=== PATIENT | male | born 1935 | race Caucasian/White ===

== ENCOUNTER 2017-01-18 14:12 | Emergency (ER) | payer MEDICARE, OTHER ==
--- NOTE | 2017-01-18 15:03 | UC ---
Respiratory Complaint HPI - HPI Summary HPI Summary: The patient comes in today for: 1. Shortness of breath: Onset: This morning. Palliative/provocative: Inhaler makes this better. Quality: dyspnea. Region: Lungs. Severity: He states that his breathing is now down 50% of normal. Time: Constant. Associated symptoms: Previous disease: He has a history of COPD for which he has been treated for 6 months. But, he states starting this morning, his breathing got worse. He states that compared to normal breathing, his breathing normally is down to 60%. However, this morning, it is worse at 50%. Previous treatment: He has seen Dr. Prasad 2 weeks ago. He was treated for COPD. He is also being assessed for sleep apnea. Chest pain: None. Previous heart disease: He has a history of afib. HE states that has had this for three years. He sees a printing press operator for this--last seen about 2 months ago. Fevers: No temperature taken at home. Cough: Productive of yellow material. - History of Current Complaint Chief Complaint: UCRespiratory Stated Complaint: BREATHING ISSUE/CONGEST-COPD Time Seen by Provider: 01/18/17 14:48 Hx Obtained From: Patient - Allergies/Home Medications Allergies/Adverse Reactions: Allergies Allergy/AdvReac Type Severity Reaction Status Date / Time Iodine Allergy Severe Hives Verified 01/20/16 16:13 Amoxicillin Allergy Intermediate Hives Verified 01/20/16 16:13 Banana Allergy AVOIDS Verified 01/20/16 16:13 BECAUSE OF MEDICATION Home Medications: Home Medications Budesonide/Formote 80/4.5(NF) [Symbicort 80/4.5 (NF)] 1 puff INH BID 01/18/17 [ History Confirmed 01/18/17] PMH/Surg Hx/FS Hx/Imm Hx Previously Healthy: No - BPH, gout. Endocrine History Of: Reports: Diabetes - type 2 dm Denies: Thyroid Disease, Hyperthyroidism, Hypothyroidism, Dyslipidemia Cardiovascular History Of: Reports: Cardiac Disorders - A FIB, Hypertension - CONTROL WITH MEDS, Atrial Fibrillation Denies: Pacemaker/ICD, Myocardial Infarction, Congestive Heart Failure, Deep Vein Thrombosis, Bleeding Disorders Respiratory History Of: Reports: COPD - 70%, Asthma, Bronchitis - HX OF 2 TIMES PER YEAR Denies: Pneumonia, Pulmonary Embolism GI/ History Of: Reports: Kidney Stones Denies: Gastroesophageal Reflux, Ulcer, Gastrointestinal Bleed, Gall Bladder Disease, Diverticulitis, Renal Disease, Urosepsis Neurological History Of: Reports: CVA - Around 1999 Denies: Dementia, Seizures, Migraine Psychological History Of: Denies: Anxiety, Depression, Bipolar Disorder, Schizophrenia, Post Traumatic Stress Disorder Cancer History Of: Denies: Lung Cancer, Colorectal Cancer, Breast Cancer, Prostate Cancer Other History Of: Anticoagulant Therapy - On warfarin Negative For: HIV, Hepatitis B, Hepatitis C - Surgical History Surgical History: Yes Surgery Procedure, Year, and Place: bilat cataract. [facility] marrow biopsy at the [facility] in [place] - Family History Known Family History: Negative: Cardiac Disease, Hypertension, Diabetes - Social History Occupation: Retired Lives: With Family Alcohol Use: None Substance Use Type: None Smoking Status (MU): Former Smoker Type: Cigarettes Amount Used/How Often: 1 PPD OFF AND ON 15-20 YEARS Length of Time of Smoking/Using Tobacco: OFF AND ON FOR 15-20 YEARS Have You Smoked in the Last Year: No When Did the Patient Quit Smoking/Using Tobacco: 2003 - Immunization History Most Recent Influenza Vaccination: 2015 Most Recent Tetanus Shot: "a while" Most Recent Pneumonia Vaccination: 4-5 yrs ago Review of Systems Constitutional: Fever Skin: Negative Eyes: Negative ENT: Negative Respiratory: Shortness Of Breath, Cough Cardiovascular: Negative Gastrointestinal: Negative All Other Systems Reviewed And Are Negative: Yes Physical Exam Triage Information Reviewed: Yes Appearance: Well-Appearing, No Pain Distress, Well-Nourished Vital Signs: Initial Vital Signs Temp 99.8 F 01/18/17 14:14 Pulse 115 01/18/17 14:14 Resp 22 01/18/17 14:14 Pulse Ox 96 01/18/17 14:14 Vital Signs Reviewed: Yes Eyes: Positive: Conjunctiva Clear. Negative: Discharge ENT: Positive: Hearing grossly normal. Negative: Pharyngeal erythema, Nasal congestion, Nasal drainage, TM bulging, TM dull, TM red, Tonsillar swelling, Tonsillar exudate Dental: Negative: Gross Decay/Caries @, Dental Fracture @ Neck: Positive: Supple, Nontender, No Lymphadenopathy. Negative: Nuchal Rigidity Respiratory: Positive: Lungs clear, No respiratory distress, No accessory muscle use, Other: - He has a very shortened inspiration/expiration cycle.. Negative: Rhonchi, Wheezing Cardiovascular: Positive: RRR, No Murmur Abdomen Description: Positive: Nontender, No Organomegaly, Soft. Negative: Distended, Guarding Musculoskeletal: Positive: Strength Intact, ROM Intact, No Edema Neurological: Positive: Alert, Muscle Tone Normal Psychological: Negative: Age Appropriate Behavior, Consolable Skin: Negative: rashes, breakdown UC Diagnostic Evaluation - Laboratory O2 Sat by Pulse Oximetry: 96 Diagnostic Studies Comment: EKG: Rate: 96-115. Rhythym: atrial fibrillation. Ectopy: No ventricular arrhythmias. Acute changes: None. CXR: lingular pneumonia. - Radiology Xray Interpretation: Positive (See Comments) Radiology Interpretation Completed By: Radiologist - Lingular pneumonia. Respiratory Course/Dx - Course Course Of Treatment: Patient told of his lingular pneumonia and my recommendation to go to the Er. He agreed to go--by private car. - Differential Dx/Diagnosis Provider Diagnoses: Lingular pneumonia. atrial fibrillation with episodes of rapid ventricular response. COPD. DM. HTN - Physician Notification/Consults Discussed Patient Care With: Dr. Pierson Time Discussed With Above Provider: 15:54 Discharge - Discharge Plan Condition: Stable Disposition: HOME Additional Instructions: Please go directly to the ER at [facility].
--- NOTE | 2017-01-18 15:35 | RAD ---
INDICATION: Fever. Pneumonia. COMPARISON: Chest x-ray October 26, 2016 TECHNIQUE: PA and lateral dual-energy views were obtained. FINDINGS: Bones/Soft Tissues: There are no acute bony findings. Cardiomediastinal: The heart is top normal in size with mild uncoiling of the thoracic aorta. Lungs: There is a lingular infiltrate and there may also be a small right middle lobe infiltrate. Pleura: There are no pleural effusions. Other: None IMPRESSION: LINGULAR PNEUMONIA.
[2017-01-18 15:50] VITALS: BP 161/85
== END 2017-01-18 15:58 | disposition home or self-care (01) ==
LOC: EDBD → UCEAST 14:12
DX: J18.9 Pneumonia, unspecified organism (principal); I48.91 Unspecified atrial fibrillation; J44.9 Chronic obstructive pulmonary disease, unspecified; E11.9 Type 2 diabetes mellitus without complications; I10 Essential (primary) hypertension; Z87.891 Personal history of nicotine dependence
CPT/HCPCS: 71020; 93005; 99212; G0463

== ENCOUNTER 2017-01-18 16:16 | Inpatient (IN) | payer MEDICARE, OTHER ==
[2017-01-18] MEDS ORDERED: Levofloxacin 750 MG IVPREMIX(* 750 MG/150 ML BAG IVPB ONE (16:43)
[2017-01-18] MEDS: NS 0.9% 1000 ML* 2,000 ML IV ONE (17:14)
[2017-01-18 17:20] LABS: Hematocrit 45 % (42-52); Hemoglobin 14.6 g/dl (14.0-18.0); Mean Corpuscular HGB Conc 33 g/dl (31-36); Mean Corpuscular Hemoglobin 27 pg (27-31); Mean Corpuscular Volume 83 fL (80-94); Mean Platelet Volume 9 um3 (7.4-10.4); Red Blood Count 5.43 10^6/ul (4.0-5.4); Red Cell Distribution Width 16 % (10.5-15)
[2017-01-18 17:27] LABS: Add Diff/Slide Review? Slide Review Added; Comments Flag Yes
[2017-01-18 17:36] LABS: BUN/Creatinine Ratio 12.5 (8-20); C Reactive Protein 7.42 mg/L (< 5.00); Calcium 9.5 mg/dL (8.6-10.3); EGFR African American 107.4 (>60); EGFR Non-African American 83.5 (>60); Globulin 2.8 g/dL (2-4); Potassium 4.1 mmol/L (3.5-5.0); Total Bilirubin 0.6 mg/dL (0.2-1.0); Total Protein 6.8 g/dL (6.4-8.9)
[2017-01-18 17:43] LABS: Troponin I 0.05 ng/mL (<0.04)
[2017-01-18] MEDS ORDERED: GuaiFENesin DM* 5 ML UDC PO PRN (18:28)
[2017-01-18] MEDS ORDERED: Dextrose 50% Syringe 50 ML* 25 GM/50 ML SYRINGE IV PUSH PRN (18:28)
[2017-01-18] MEDS ORDERED: Albuterol HFA INHALER* 8 gm MDI INH PRN (18:40)
--- NOTE | 2017-01-18 19:32 | RAD ---
INDICATION: Lingular pneumonia on chest x-ray COMPARISON: Chest x-ray same date TECHNIQUE: Axial source images were obtained from the thoracic inlet to the hemidiaphragms. Coronal and sagittal reconstructed images were acquired. The right thyroid lobe is an isthmus enlarged and heterogeneous. Suggest nonemergent follow-up thyroid sonography. Chest wall: There are no acute abnormalities of the bony thorax or chest wall. There is no supraclavicular, infraclavicular, or axillary lymphadenopathy. Lungs : There is a lingular pneumonia with consolidation consistent with a chest x-ray findings. The remaining lung ulrich are clear. Cardiomediastinal structures: The heart is normal in size. There is no pericardial effusion. There is no evidence of aortic aneurysm or dissection. The pulmonary vessels appear normal. There is no mediastinal or hilar adenopathy based on size criteria. The esophagus appears normal. Pleura : There are no pleural-based masses or effusions. Other: Incompletely imaged upper pole right renal cyst measuring 4.9 cm. IMPRESSION: LINGULAR PNEUMONIA. SUGGEST FOLLOW-UP.
[2017-01-18] MEDS: cefTRIAXone VIAL(*) 1,000 MG in NS 0.9% 50 ML* 50 ML IVPB SCH (20:11)
[2017-01-18] MEDS ORDERED: Warfarin TAB(*) 2.5 MG PO ONE (20:33)
[2017-01-18] MEDS: Benzonatate CAP* 100 MG PO SCH (20:52)
[2017-01-18] MEDS: Atenolol TAB* 50 MG PO SCH (20:52)
[2017-01-18] MEDS: Azithromycin TAB* 250 MG PO SCH (20:52)
--- NOTE | 2017-01-19 02:28 | HP ---
HOSPITAL MEDICINE HISTORY AND PHYSICAL: DATE OF ADMISSION: 01/18/17 PRIMARY CARE PHYSICIAN: Dr. Brody, [place] ATTENDING PHYSICIAN: Lakhwinder Yusuf MD* (dictation provided by Scar Wong NP ) CHIEF COMPLAINT: Shortness of breath, cough, and fever. HISTORY OF PRESENT ILLNESS: Mr. Islas is a 81-year-old male with a past medical history of COPD, atrial fibrillation, diabetes, and hypertension as well as admission to the hospital in November 2016 for pneumonia, who presents today to the hospital with concern for cough, shortness of breath, and fever. Mr. Islas states that his illness began about 2 months ago. He has felt better at times, but has never been back to baseline. He was admitted to the hospital here in October 2016 and in November 2016 for pneumonia. During both of these admissions, he was treated with Levaquin. The patient states that he has followed up with Dr. Prasad, information assistant, through [facility] [place]. He last saw him a few weeks ago with planned followup next week. The patient is continued on his home routine inhalers. He states that this morning, he actually woke up feeling relatively well, but by 9 a.m., he developed shortness of breath and by 10 o'clock, he was having fevers, chills, and a headache. He decided to be seen in the [facility] at which point where he had a chest x- ray, which showed concern for right-sided pneumonia. He was therefore sent to the emergency room for evaluation. In the emergency room, Mr. Islas has a leukocytosis with white blood cell count of 20, but I do note that his white blood cell count has been elevated since as far back as 2013 on all our checks here at the hospital. Otherwise, he has a mild lactic acidosis of 2.5 and a troponin elevated to 0.05. Again, I note this was the same as during the last hospitalization. At this point, he is not requiring oxygen and is breathing easy. PAST MEDICAL HISTORY: 1. COPD. 2. AFib. 3. Diabetes, noninsulin dependent. 4. Hypertension. 5. Recurrent pneumonia, treated as inpatient October 2016 and November 2016. MEDICATIONS: 1. Albuterol 2 puffs inhaled q.4 hours p.r.n. 2. Allopurinol 100 mg p.o. q.a.m. 3. Amlodipine 10 mg p.o. q.a.m. 4. Atenolol 100 mg p.o. b.i.d. 5. Symbicort 80/4.5 mcg 1 puff inhaled b.i.d. 6. Cholecalciferol 400 units p.o. q.a.m. 7. Colchicine 0.6 mg p.o. as needed. 8. Cyanocobalamin 250 mcg p.o. q.a.m. 9. Finasteride 5 mg p.o. daily. 10. Losartan 50 mg p.o. daily. 11. Metformin 1000 mg p.o. b.i.d. 12. Tamsulosin 0.8 mg p.o. q.p.m. 13. Warfarin 2.5 mg p.o. daily. 14. Glipizide 5 mg p.o. b.i.d. ALLERGIES: IODINE, AMOXICILLIN, and BANANA. FAMILY HISTORY: The patient reports his parents from old age. SOCIAL HISTORY: No report of alcohol or drug use. The patient states he quit smoking many many years ago. He states that his is his health care proxy. REVIEW OF SYSTEMS: A 14-point review of systems was completed with Mr. Islas and all those not mentioned above were negative. PHYSICAL EXAMINATION GENERAL: Mr. Islas is sitting up in the bed. He is in no acute distress. He is calm and cooperative to my examination. VITAL SIGNS: Temperature 99.3, heart rate 90, respiratory rate 18, O2 saturation 94% on room air, and blood pressure 137/72. LUNGS: Clear, but there is egophony noted over the right middle lobe. He has good aeration. There is no accessory muscle use. HEART: S1, S2. No murmur, rub, or gallop and regular. ABDOMEN: Soft, nontender with bowel sounds positive x4. EXTREMITIES: No cyanosis or edema. NEUROLOGIC: He is alert. He is oriented x3. He moves all extremities equally. There is no facial asymmetry or focal weakness. Extraocular movements are intact. SKIN: Intact. DIAGNOSTIC STUDIES/LAB DATA: Sodium 134, potassium 4.1, chloride 100, serum bicarbonate 24, BUN 11, creatinine 0.88, glucose 155, and lactic acid 2.5. Troponin 0.05. CRP 7.42. White blood cell count is 20, hemoglobin 14.6, hematocrit 45, and platelet count 559. INR 2.18. Chest x-ray reads "lingular pneumonia." EKG shows atrial fibrillation with no evidence of ischemia. ASSESSMENT: Mr. Islas is a 81-year-old male with a past medical history of chronic obstructive pulmonary disease, diabetes, atrial fibrillation, and hypertension as well as 2 recent hospitalizations for pneumonia in October 2016 and November 2016 who presents again today with shortness of breath, cough, fevers, and chills, found to have worsening pneumonia noted on chest x-ray. Our plan is for inpatient admission as I expect the length of stay to be greater than 2 days for the followin. Pneumonia: I am concerned that the patient has had 2 admissions and now has a worsening right sided infiltrate During the past hospitalizations, he was treated with Levaquin. I plan to switch now to ceftriaxone and azithromycin. I am also planning to order a chest CT for further evaluation of the infiltrate. I suspect the patient may benefit from consultation with Dr. Correa tomorrow and possible bronchoscopy depending on her recommendations. Sputum culture has been ordered. Flu swab has been ordered. The patient will have guaifenesin and Tessalon Perles. He will have oxygen available as needed though he is not needing it now. The patient has no wheezing on examination and I do not see any indication for steroids. 2. Diabetes: Plan to hold metformin and glipizide. The patient will have blood glucoses q.a.c. with lispro sliding scale. 3. Hypertension: Plan to continue home medications of losartan, amlodipine, and atenolol. 4. Atrial fibrillation: INR is therapeutic. Plan to monitor closely while on antibiotics and ill. He will continue his home atenolol. 5. DVT prophylaxis: With therapeutic INR. 6. Code status: Full code. 7. Disposition: To the medical floor. 8. Elevated troponin: The patient's troponin has been elevated at previous checks as well. He has no chest pain and has EKG without evidence of ischemia. I will repeat the troponin for completeness sake, but I have no concern for acute coronary syndrome at this time. TIME SPENT: Approximately 60 minutes was spent in the admission of this patient , more than half of the time was spent with the patient at the bedside reviewing the events leading up to this hospitalization, performing the physical examination, and reviewing my plan of care. SCAR WONG NP CC: Dr. Brody* [id number]/[facility] #: [id number] GENARO
[2017-01-19] MEDS: Acetaminophen TAB* 325 MG PO PRN ×3 (04:19→22:20)
[2017-01-19 05:11] LABS: Hematocrit 43 % (42-52); Mean Corpuscular HGB Conc 33 g/dl (31-36); Mean Corpuscular Hemoglobin 27 pg (27-31); Mean Corpuscular Volume 82 fL (80-94); Mean Platelet Volume 9 um3 (7.4-10.4); Red Blood Count 5.17 10^6/ul (4.0-5.4); Red Cell Distribution Width 16 % (10.5-15); White Blood Count 19.5 10^3/ul (3.5-10.8)
[2017-01-19 05:14] LABS: Comments Flag Yes
[2017-01-19 05:15] LABS: Add Diff/Slide Review? Slide Review Added
[2017-01-19 05:26] LABS: Calcium 9.4 mg/dL (8.6-10.3); EGFR African American 102.1 (>60); EGFR Non-African American 79.4 (>60); Potassium 4.2 mmol/L (3.5-5.0)
[2017-01-19] MEDS: Insulin LISPRO* 1 UNITS UNIT SUBCUT SCH ×3 (08:41→17:25)
[2017-01-19] MEDS: Benzonatate CAP* 100 MG PO SCH ×2 (08:43→21:26)
[2017-01-19] MEDS: Cyanocobalamin TAB* 500 MCG PO SCH (08:43)
[2017-01-19] MEDS: Atenolol TAB* 50 MG PO SCH ×2 (08:44→21:26)
[2017-01-19] MEDS: Finasteride TAB* 5 MG PO SCH (08:44)
[2017-01-19] MEDS: amLODIPine TAB* 5 MG PO SCH (08:44)
[2017-01-19] MEDS: Cholecalciferol TAB* 400 UNIT PO SCH (08:44)
[2017-01-19] MEDS: Losartan TAB* 25 MG PO SCH (08:44)
[2017-01-19] MEDS: Allopurinol TAB* 100 MG PO SCH (08:44)
--- NOTE | 2017-01-19 14:50 | PN ---
Subjective Date of Service: 01/19/17 Interval History: HOSPITALIST PROGRESS NOTE Patient seen and examined at bedside. He feels better today. Has less cough and dyspnea, oxygen requirements are down to 1 liter with exertion. Denies CP or palpitations. Family History: Unchanged from Admission Social History: Unchanged from Admission Past Medical History: Unchanged from Admission Objective Active Medications: Acetaminophen (Tylenol Tab*) 650 mg PO Q6H PRN PRN Reason: PAIN Last Admin: 01/19/17 04:19 Dose: 650 mg Albuterol (Ventolin Hfa Inhaler*) 2 puff INH Q4H PRN PRN Reason: COUGH Allopurin[facility] ([facility]yloprim Tab*) [facility] Last Admin: 01/19/17 08:44 Dose: 100 mg Amlodipine Besylate (Norvasc Tab*) [facility] Last Admin: 01/19/17 08:44 Dose: 10 mg Atenolol (Tenormin Tab*) 100 mg PO BID [facility] Last Admin: 01/19/17 08:44 Dose: 100 mg Azithromycin (Zithromax Tab*) 500 mg PO DAILY@1700 [facility] Last Admin: 01/18/17 20:52 Dose: 500 mg Benzonatate (Tessalon Cap*) 100 mg PO BID [facility] Last Admin: 01/19/17 08:43 Dose: 100 mg Cholecalciferol (Vitamin D Tab*) [facility] Last Admin: 01/19/17 08:44 Dose: 400 unit Cyanocobalamin (Vitamin B12 Tab*) 250 mcg [facility] Last Admin: 01/19/17 08:43 Dose: 250 mcg Dextrose (D50w Syringe 50 Ml*) 12.5 gm IV PUSH .FOR FS < 60 - SS PRN PRN Reason: FS < 60 Finasteride (Proscar Tab*) 5 mg PO DAILY [facility] Last Admin: 01/19/17 08:44 Dose: 5 mg Guaifenesin/Dextromethorphan (Robitussin Dm*) 10 ml PO Q4H PRN PRN Reason: COUGH Ceftriaxone Sodium 1,000 mg/ (Sodium Chloride) 50 mls @ 200 mls/hr IVPB Q24H [facility] Last Admin: 01/18/17 20:11 Dose: 200 mls/hr Insulin Human Lispro (Humalog*) 0 units SUBCUT AC [facility] PRN Reason: Protocol Last Admin: 01/19/17 12:27 Dose: 2 unit Losartan Potassium (Cozaar Tab*) 50 mg PO DAILY [facility] Last Admin: 01/19/17 08:44 Dose: 50 mg Pharmacy Profile Note (Coumadin Daily Reminder*) 1 note FOLLOW UP 1700 [facility] Tamsulosin HCl (Flomax Cap*) 0.8 mg PO QPM [facility] Warfarin Sodium (Coumadin Tab(*)) 2.5 mg PO DAILY@1700 [facility] PRN Reason: Protocol Vital Signs 01/19/17 01/19/17 01/19/17 08:00 10:17 10:55 Temperature 98.5 F Pulse Rate 78 Respiratory 20 Rate Blood Pressure 120/62 (mmHg) O2 Sat by Pulse 98 95 Oximetry Oxygen Devices in Use Now: None Appearance: Pleasant elderly male sitting up in a chair in NAD. Eyes: No Scleral Icterus Ears/Nose/Mouth/Throat: Mucous Membranes Moist Neck: Trachea Midline Respiratory: Symmetrical Chest Expansion and Respiratory Effort, - - BS+ bilaterally with crackles on the right. Cardiovascular: RRR - Normal S1 and S2 Abdominal: NL Sounds; No Tenderness; No Distention Extremities: No Edema Neurological: Alert and Oriented x 3, NL Muscle Strength and Tone Lines/Tubes/Other Access: Clean, Dry and Intact Peripheral IV Nutrition: Taking PO's Result Diagrams: 01/19/17 04:55 01/19/17 04:55 Assess/Plan/Problems-Billing Assessment: Mr. Islas is a 81yo M with PMH of COPD, Afib, type 2 DM, HTN, who presented to ED with c/o SOB, cough, and fever, found to have pneumonia. - Patient Problems (1) Sepsis Comment: - Met sepsis criteria on admission with fever, tachycardia, and leukocytosis. - Source is pneumonia. (2) Pneumonia Comment: - CT chest showed lingular pneumonia. - Cultures show no growth so far and Influenza was negative. - Check Legionella and pneumococcal Ag. - Continue Ceftriaxone and Zithromax. - Will obtain records from Dr. Brody's office (patient had spirometry a couple months ago) and Dr. Prasad (patient had a recent sleep study). - Pulm consult requested. (3) Acute hypoxemic respiratory failure Comment: - Secondary to pneumonia. - He's on RA at rest and requires only 1 liter of O2 with exertion. (4) COPD (chronic obstructive pulmonary disease) Comment: - Not in exacerbation at this time. - Continue bronchodilators. (5) Atrial fibrillation Comment: - Rate is controlled. - Continue Atenolol and Warfarin. (6) Hypertension Comment: - Controlled. - Continue Atenolol, Losartan, and Amlodipine. (7) Diabetes mellitus Comment: - Check A1c. - Glipizide and Metformin on hold for now. - Continue FS with Lispro SS. (8) DVT prophylaxis Comment: - Warfarin. (9) Full code status Status and Disposition: Inpatient. and son updated at bedside.
[2017-01-19] MEDS ORDERED: Warfarin TAB(*) 2.5 MG PO SCH (17:00)
[2017-01-19] MEDS: Tamsulosin CAP* 0.4 MG PO SCH (17:26)
[2017-01-19] MEDS: Azithromycin TAB* 250 MG PO SCH (17:26)
[2017-01-19] MEDS: cefTRIAXone VIAL(*) 1,000 MG in NS 0.9% 50 ML* 50 ML IVPB SCH (19:40)
--- NOTE | 2017-01-19 23:29 | CONS ---
PULMONARY CONSULTATION REPORT: DATE OF CONSULT: 01/19/17 REASON FOR CONSULT: Evaluation of pneumonia, shortness of breath. CONSULTATION REQUESTED BY: Shannan Arauz MD HISTORY OF PRESENT ILLNESS: The patient is a 81-year-old male with history of COPD, atrial fibrillation, diabetes, and hypertension. The patient was recently admitted to the hospital on 12/19/16 for pneumonia and was treated with antibiotics. The patient presents for repeat evaluation given persistent symptoms. The patient has been having gradually worsening dyspnea over the past few months. The patient also reports cough and fever recently. Symptoms have been recurrent since October. Symptoms have never returned to his baseline. He was admitted in October 2016 and November 2016 for pneumonia. He did not have a CT of chest during those times. Chest x-ray did not reveal significant pneumonia. He was treated with Levaquin during both admissions. The patient subsequently was discharged and had followed up with Dr. Prasad at [facility]. He had a sleep study done recently and has a followup appointment planned for next week. The patient has been using his inhalers at home. He has not been feeling well since the day before admission and he decided [facility] at which time he had a chest x-ray which showed concern for right-sided pneumonia. While in the emergency room, he was noted to have leukocytosis with a white count of 20. The patient also had elevated lactate at 2.5 and a slightly elevated troponin at 0.05. The patient has been requiring O2 supplementation. The patient has been febrile since admission. He has been receiving broad spectrum antibiotics. The patient had CT scan of the chest done. I have personally reviewed CT scan of chest, the patient is noted to have airspace opacity in the lingular region and right basilar atelectasis. No significant mediastinal or hilar adenopathy was noted. The patient denies travel recently. He had spiked a fever of 100.9 today. PAST MEDICAL HISTORY: 1. COPD. 2. AFib. 3. Diabetes. 4. Hypertension. 5. Recurrent pneumonia requiring inpatient antibiotics in October 2016 and November 2016. MEDICATIONS: At home: 1. Albuterol. 2. Allopurinol. 3. Amlodipine. 4. Atenolol. 5. Symbicort. 6. Cholecalciferol. 7. Colchicine. 8. Cyanocobalamin. 9. Finasteride. 10. Losartan. 11. Metformin. 12. Tamsulosin. 13. Warfarin. 14. Glipizide. ALLERGIES: IODINE, AMOXICILLIN, BANANA. FAMILY HISTORY: Parents from old age. SOCIAL HISTORY: No alcohol or drug abuse. He quit smoking many years ago. REVIEW OF SYSTEMS: A 14-point review of systems as per HPI. PHYSICAL EXAM: The patient has been sitting up in the chair in no apparent distress. Vital Signs: Temperature 100.9, pulse 90 beats per minute, respiratory rate 22 per minute, O2 sat 94% on 2 L, Blood pressure 156/57. HEENT : Pupils equal and reactive to light. Mucous membranes are moist. Lungs: Coarse breath sounds in the right middle lobe area and left lower lobe. Cardiovascular: S1 and S2 present, regular. Abdomen: Soft, nontender, and nondistended. Bowel sounds present. Extremities: No cyanosis or edema. Neurologic: No focal deficits. Skin: Intact, no rash or bruises. DIAGNOSTIC STUDIES/LAB DATA: WBC count is 19.5, hemoglobin 14, hematocrit 43, platelet count 477. INR is 1.95. Sodium 133, potassium 4.2, chloride 102, bicarb 25, BUN of 11, creatinine 0.92, troponin elevated at 0.05. Lactic acid 2.5 on admission, came back to 1.3. CT scan of the chest as prescribed above in the HPI. IMPRESSION AND RECOMMENDATION: 81-year-old obese male, former smoker with a history of chronic obstructive pulmonary disease with recurrent pneumonias since October with 2 hospitalizations in October and November, found to have left lower lobe pneumonia. 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 Given prior smoking history, will need to rule out malignancy. Continue with broad spectrum antibiotics. The patient will need bronchoscopy and transbronchial biopsy of the left upper lobe given possibility of BOOP or CIGARETTE MACHINES MECHANIC. Will schedule the procedure as outpatient. Continue with bronchodilators. Continue with O2 supplementation. He recently had sleep study as outpatient. Will need to obtain those records and initiate him on treatment. Thank you for allowing me to participate in the care of your patient. [id number]/[facility] #: [id number] GENARO
[2017-01-20 06:32] LABS: Hematocrit 44 % (42-52); Hemoglobin 14.5 g/dl (14.0-18.0); Mean Corpuscular HGB Conc 33 g/dl (31-36); Mean Corpuscular Hemoglobin 27 pg (27-31); Mean Corpuscular Volume 82 fL (80-94); Mean Platelet Volume 9 um3 (7.4-10.4); Red Blood Count 5.39 10^6/ul (4.0-5.4); Red Cell Distribution Width 16 % (10.5-15); White Blood Count 21.7 10^3/ul (3.5-10.8)
[2017-01-20 06:37] LABS: Add Diff/Slide Review? Slide Review Added; Comments Flag Yes
[2017-01-20 06:53] LABS: BUN/Creatinine Ratio 19.5 (8-20); C Reactive Protein 66.2 mg/L (< 5.00); Calcium 9.2 mg/dL (8.6-10.3); EGFR African American 125.3 (>60); EGFR Non-African American 97.5 (>60); Potassium 4.4 mmol/L (3.5-5.0)
[2017-01-20] MEDS: amLODIPine TAB* 5 MG PO SCH (08:14)
[2017-01-20] MEDS: Allopurinol TAB* 100 MG PO SCH (08:14)
[2017-01-20] MEDS: Cyanocobalamin TAB* 500 MCG PO SCH (08:14)
[2017-01-20] MEDS: Losartan TAB* 25 MG PO SCH (08:14)
[2017-01-20] MEDS: Atenolol TAB* 50 MG PO SCH ×2 (08:14→20:01)
[2017-01-20] MEDS: Cholecalciferol TAB* 400 UNIT PO SCH (08:14)
[2017-01-20] MEDS: Benzonatate CAP* 100 MG PO SCH ×2 (08:14→20:00)
[2017-01-20] MEDS: Finasteride TAB* 5 MG PO SCH (08:14)
[2017-01-20] MEDS: Insulin LISPRO* 1 UNITS UNIT SUBCUT SCH ×3 (08:15→16:40)
[2017-01-20] MEDS: Albuterol/Ipratropium NEB.SOL* Albuterol 2.5 MG/Ipratropium 0.5 MG 3 ML INH SCH ×3 (14:03→20:25)
--- NOTE | 2017-01-20 15:28 | PN ---
Subjective Date of Service: 01/20/17 Interval History: Pt is feeling ok currently. He states he feels better now because he just had a nebulizer treatment. He has been coughing and bringing up yellowish sputum. He does not feel much better than when he presented to the hospital. Objective Active Medications: Acetaminophen (Tylenol Tab*) 650 mg PO Q6H PRN PRN Reason: PAIN Last Admin: 01/19/17 22:20 Dose: 650 mg Albuterol (Ventolin Hfa Inhaler*) 2 puff INH Q4H PRN PRN Reason: COUGH Albuterol/Ipratropium (Duoneb Neb.Ria*) 1 neb INH [id number] AWAKE [facility] Last Admin: 01/20/17 14:03 Dose: 1 neb Allopurinol ([facility]yloprim Tab*) [facility] [place] Last Admin: 01/20/17 08:14 Dose: 100 mg Amlodipine Besylate (Norvasc Tab*) [facility] [place] Last Admin: 01/20/17 08:14 Dose: 10 mg Atenolol (Tenormin Tab*) 100 mg PO BID [facility] Last Admin: 01/20/17 08:14 Dose: 100 mg Azithromycin (Zithromax Tab*) 500 mg PO DAILY@1700 [facility] Last Admin: 01/19/17 17:26 Dose: 500 mg Benzonatate (Tessalon Cap*) 100 mg PO BID [facility] Last Admin: 01/20/17 08:14 Dose: 100 mg Cholecalciferol (Vitamin D Tab*) 400 [facility] [place] Last Admin: 01/20/17 08:14 Dose: 400 unit Cyanocobalamin (Vitamin B12 Tab*) 250 mcg PO QAM [facility] Last Admin: 01/20/17 08:14 Dose: 250 mcg Dextrose (D50w Syringe 50 Ml*) 12.5 gm IV PUSH .FOR FS < 60 - SS PRN PRN Reason: FS < 60 Finasteride (Proscar Tab*) 5 mg PO DAILY [facility] Last Admin: 01/20/17 08:14 Dose: 5 mg Guaifenesin/Dextromethorphan (Robitussin Dm*) 10 ml PO Q4H PRN PRN Reason: COUGH Ceftriaxone Sodium 1,000 mg/ (Sodium Chloride) 50 mls @ 200 mls/hr IVPB Q24H [facility] Last Admin: 01/19/17 19:40 Dose: 200 mls/hr Insulin Human Lispro (Humalog*) 0 units SUBCUT AC [facility] PRN Reason: Protocol Last Admin: 01/20/17 12:19 Dose: 2 unit Losartan Potassium (Cozaar Tab*) 50 mg PO DAILY [facility] Last Admin: 01/20/17 08:14 Dose: 50 mg Pharmacy Profile Note (Coumadin Daily Reminder*) 1 note FOLLOW UP 1700 [facility] Last Admin: 01/19/17 17:26 Dose: 1 note Tamsulosin HCl (Flomax Cap*) 0.8 mg PO QPM [facility] Last Admin: 01/19/17 17:26 Dose: 0.8 mg Warfarin Sodium (Coumadin Tab(*)) 2.5 mg PO DAILY@1700 [facility] PRN Reason: Protocol Last Admin: 01/19/17 17:26 Dose: 2.5 mg Vital Signs 01/19/17 01/19/17 01/19/17 15:29 17:00 20:00 Temperature 100.9 F Pulse Rate 90 Respiratory 22 20 Rate Blood Pressure 156/57 (mmHg) O2 Sat by Pulse 92 94 Oximetry 01/19/17 01/20/17 01/20/17 23:24 00:00 02:36 Temperature 98.8 F Pulse Rate 88 76 Respiratory 22 18 Rate Blood Pressure 135/69 (mmHg) O2 Sat by Pulse 94 94 98 Oximetry 01/20/17 01/20/17 01/20/17 07:24 07:34 09:10 Temperature 98.8 F Pulse Rate 91 100 Respiratory 16 20 Rate Blood Pressure 133/64 (mmHg) O2 Sat by Pulse 95 93 Oximetry 01/20/17 01/20/17 01/20/17 10:02 13:50 14:05 Temperature 98.8 F Pulse Rate 94 86 94 Respiratory 18 20 Rate Blood Pressure 106/37 (mmHg) O2 Sat by Pulse 93 96 100 Oximetry Oxygen Devices in Use Now: Nasal Cannula - 2L-100% Appearance: Elderly male lying in bed, NAD Eyes: No Scleral Icterus Ears/Nose/Mouth/Throat: Mucous Membranes Moist Respiratory: Symmetrical Chest Expansion and Respiratory Effort, - - diminished breath sounds in all lung ulrich with diffuse scattered wheezes Cardiovascular: NL Sounds; No Murmurs; No JVD, - - irregularly irregular but controlled rate Abdominal: NL Sounds; No Tenderness; No Distention Extremities: No Clubbing, Cyanosis Skin: No Rash or Ulcers, No Nodules or Sclerosis Neurological: Alert and Oriented x 3 Result Diagrams: 01/20/17 06:15 01/20/17 06:15 Microbiology and Other Data: Microbiology 01/19/17 16:00 Legionella Urinary Antigen - Final Urine Negative Legionella Streptococcus pneumoniae Ag Screen - Final Negative S. pneumo Antigen 01/18/17 23:40 Gram Stain - Final Sputum Expectorated Assess/Plan/Problems-Billing Mr. Islas is a 81yo M with PMHx of COPD, Afib, type 2 DM, HTN, who presented to ED with c/o SOB, cough, and fever, found to have pneumonia. - Patient Problems (1) Pneumonia Current Visit: Yes Status: Acute Code(s): J18.9 - PNEUMONIA, UNSPECIFIED ORGANISM SNOMED Code(s): 699876038 Comment: CT chest on admission showed a lingular pneumonia. So far all testing has been negative as to the pathogen. Continue ceftriaxone and azithromycin. He is not feeling much better than when he presented to the ER. It is felt the patient needs bronchoscopy with transbronchial biopsy as outpatient. BOOP vs COMMITTEE MEMBER has been considered. Continue bronchodilators (standing nebs started today). (2) COPD (chronic obstructive pulmonary disease) Current Visit: Yes Status: Acute Code(s): J44.9 - CHRONIC OBSTRUCTIVE PULMONARY DISEASE, UNSPECIFIED SNOMED Code(s): 63058580 Comment: Pt is now wheezy. Will start steroids and continue standing nebs. (3) Atrial fibrillation Current Visit: Yes Status: Acute Onset Date: 08/20/14 Code(s): I48.91 - UNSPECIFIED ATRIAL FIBRILLATION SNOMED Code(s): 55392854 Comment: Rate is for the most part controlled. Continue atenolol and coumadin. INR is subtherapeutic today- give 5mg tonight and recheck INR tomorrow. (4) Diabetes mellitus Current Visit: Yes Status: Chronic Code(s): E11.9 - TYPE 2 DIABETES MELLITUS WITHOUT COMPLICATIONS SNOMED Code(s): 27550378 Comment: Sugars are mildly elevated. Resume home medication regimen and continue lispro sliding scale in the setting of starting IV solumedrol. (5) Hypertension Current Visit: Yes Status: Chronic Priority: Medium Code(s): I10 - ESSENTIAL (PRIMARY) HYPERTENSION SNOMED Code(s): 27564188 Comment: BP is under fair control. Continue atenolol, losartan and amlodipine. (6) DVT prophylaxis Current Visit: Yes Status: Acute Code(s): AYF7585 - SNOMED Code(s): 256973250 Comment: Coumadin though INR is subtherapeutic-did not get coumadin on . (7) Full code status Current Visit: Yes Status: Acute Code(s): Z78.9 - OTHER SPECIFIED HEALTH STATUS SNOMED Code(s): 841323257 Status and Disposition: .
[2017-01-20] MEDS ORDERED: CMCS: Melatonin (NF) 3 MG TAB PO PRN (16:02)
[2017-01-20] MEDS: methylPREDNISolone SOD SUCC* 40 MG/ML VIAL IV SCH (16:12)
--- NOTE | 2017-01-20 16:45 | PN ---
Progress Note - Progress Note Note: Pulm consult f/u note 01/20/17. Pt seen and examined at bedside. Pt reprots improvement in breathing, still dyspneic with exertion. Active Medications Generic Name Dose Route Start Last Admin Trade Name Freq PRN Reason Stop Dose Admin Acetaminophen 650 mg 01/18/17 23:14 01/19/17 22:20 Tylenol Tab* PO 650 mg Q6H PRN Administration PAIN Albuterol 2 puff 01/18/17 18:40 Ventolin Hfa Inhaler* INH Q4H PRN COUGH Albuterol/Ipratropium 1 neb 01/20/17 14:00 01/20/17 14:03 Duoneb Neb.Ria* INH 1 neb [id number] AWAKE YOANDY Administration Allopurinol 100 mg 01/19/17 09:00 01/20/17 08:14 Zyloprim Tab* PO 100 mg QAM YOANDY Administration Amlodipine Besylate 10 mg 01/19/17 09:00 01/20/17 08:14 Norvasc Tab* PO 10 mg QAM YOANDY Administration Atenolol 100 mg 01/18/17 21:00 01/20/17 08:14 Tenormin Tab* PO 100 mg BID YOANDY Administration Azithromycin 500 mg 01/18/17 17:00 01/19/17 17:26 Zithromax Tab* PO 500 mg DAILY@1700 YOANDY Administration Benzonatate 100 mg 01/18/17 21:00 01/20/17 08:14 Tessalon Cap* PO 100 mg BID YOANDY Administration Cholecalciferol 400 unit 01/19/17 09:00 01/20/17 08:14 Vitamin D Tab* PO 400 unit QAM YOANDY Administration Cyanocobalamin 250 mcg 01/19/17 09:00 01/20/17 08:14 Vitamin B12 Tab* PO 250 mcg QAM YOANDY Administration Dextrose 12.5 gm 01/18/17 18:28 D50w Syringe 50 Ml* IV PUSH .FOR FS < 60 - SS PRN FS < 60 Finasteride 5 mg 01/19/17 09:00 01/20/17 08:14 Proscar Tab* PO 5 mg DAILY YOANDY Administration Glipizide 5 mg 01/20/17 17:00 Glucotrol Tab* PO 0800,1700 YOANDY Guaifenesin/Dextromethorphan 10 ml 01/18/17 18:28 Robitussin Dm* PO Q4H PRN COUGH Ceftriaxone Sodium 1,000 mg/ 50 mls @ 200 mls/hr 01/18/17 20:00 01/19/17 19: 40 Sodium Chloride IVPB 200 mls/hr Q24H YOANDY Administration Insulin Human Lispro 0 units 01/19/17 07:30 01/20/17 12:19 Humalog* SUBCUT 2 unit AC YOANDY Administration Protocol Losartan Potassium 50 mg 01/19/17 09:00 01/20/17 08:14 Cozaar Tab* PO 50 mg DAILY YOANDY Administration Melatonin 3 mg 01/20/17 16:02 Melatonin (Nf) PO BEDTIME PRN SLEEP Protocol Metformin HCl 1,000 mg 01/20/17 16:30 Glucophage* PO BID AC [facility] Methylprednisolone Sodium Succinate 40 mg 01/20/17 16:00 01/20/17 16:12 Solu-Medrol* IV 40 mg Q12H YOANDY Administration Pharmacy Profile Note 1 note 01/19/17 17:00 01/19/17 17:26 Coumadin Daily Reminder* FOLLOW UP 1 note 1700 YOANDY Administration Tamsulosin HCl 0.8 mg 01/19/17 18:00 01/19/17 17:26 Flomax Cap* PO 0.8 mg QPM YOANDY Administration Warfarin Sodium 5 mg 01/20/17 17:00 Coumadin Tab(*) PO 01/20/17 17:01 ONCE@1700 ONE Protocol Vital Signs Temp Pulse Resp BP Pulse Ox 98.3 F 101 20 137/60 94 01/20/17 15:41 01/20/17 15:41 01/20/17 14:05 01/20/17 15:41 01/20/17 15:41 Appearance: Elderly male lying in bed, NAD HEENT: No Scleral Icterus, Mucous Membranes Moist Respiratory: Symmetrical Chest Expansion and Respiratory Effort,diminished breath sounds in all lung ulrich with diffuse scattered wheezes Cardiovascular: NL Sounds; No Murmurs; No JVD, - - irregularly irregular but controlled rate Abdominal: NL Sounds; No Tenderness; No Distention Extremities: No Clubbing, Cyanosis Skin: No Rash or Ulcers, No Nodules or Sclerosis Neurological: Alert and Oriented x 3 Laboratory Results - last 24 hr 01/19/17 01/20/17 01/20/17 17:09 06:07 06:15 WBC 21.7 H RBC 5.39 Hgb 14.5 Hct 44 MCV 82 MCH 27 MCHC 33 RDW 16 H Plt Count 491 H MPV 9 Neut % (Auto) 80.7 Lymph % (Auto) 8.2 L [place] % (Auto) 10.2 H Eos % (Auto) 0.4 Baso % (Auto) 0.5 Absolute Neuts (auto) 17.5 H Absolute Lymphs (auto) 1.8 Absolute Monos (auto) 2.2 H Absolute Eos (auto) 0.1 Absolute Basos (auto) 0.1 Absolute Nucleated RBC 0.01 Nucleated RBC % 0.1 INR (Anticoag Therapy) 1.44 H Sodium Potassium Chloride Carbon Dioxide Anion Gap BUN Creatinine Est GFR ( Amer) Est GFR (Non-Af Amer) BUN/Creatinine Ratio Glucose POC Glucose (mg/dL) 147 H Hemoglobin A1c Calcium C-Reactive Protein 01/20/17 01/20/17 01/20/17 06:15 06:15 07:31 WBC RBC Hgb Hct MCV MCH MCHC RDW Plt Count MPV Neut % (Auto) Lymph % (Auto) [place] % (Auto) Eos % (Auto) Baso % (Auto) Absolute Neuts (auto) Absolute Lymphs (auto) Absolute Monos (auto) Absolute Eos (auto) Absolute Basos (auto) Absolute Nucleated RBC Nucleated RBC % INR (Anticoag Therapy) Sodium 134 Potassium 4.4 Chloride 102 Carbon Dioxide 23 Anion Gap 9 BUN 15 Creatinine 0.77 Est GFR ( Amer) 125.3 Est GFR (Non-Af Amer) 97.5 BUN/Creatinine Ratio 19.5 Glucose 154 H POC Glucose (mg/dL) 208 H Hemoglobin A1c 6.6 H Calcium 9.2 C-Reactive Protein 66.20 H 01/20/17 12:00 WBC RBC Hgb Hct MCV MCH MCHC RDW Plt Count MPV Neut % (Auto) Lymph % (Auto) [place] % (Auto) Eos % (Auto) Baso % (Auto) Absolute Neuts (auto) Absolute Lymphs (auto) Absolute Monos (auto) Absolute Eos (auto) Absolute Basos (auto) Absolute Nucleated RBC Nucleated RBC % INR (Anticoag Therapy) Sodium Potassium Chloride Carbon Dioxide Anion Gap BUN Creatinine Est GFR ( Amer) Est GFR (Non-Af Amer) BUN/Creatinine Ratio Glucose POC Glucose (mg/dL) 167 H Hemoglobin A1c Calcium C-Reactive Protein 01/20/17 06:15 Microbiology and Other Data: Microbiology 01/19/17 16:00 Legionella Urinary Antigen - Final Urine Negative Legionella Streptococcus pneumoniae Ag Screen - Final Negative S. pneumo Antigen 01/18/17 23:40 Gram Stain - Final Sputum Expectorated Pt is a 81yo M with PMHx of COPD, Afib, type 2 DM, HTN, who presented to ED with c/o SOB, cough, and fever, found to have REX pneumonia. 1. REX PNA with recurrent PNAs since October 2. Acute COPD exacerbation Continue ceftriaxone and azithromycin. Recommend nebs and steroids for possible COPD exacerbation. Patient will need bronchoscopy with transbronchial biopsy as outpatient to evaluate BOOP vs LETTUCE CUTTER Will need to obtain sl study results that was done at outside facility
[2017-01-20] MEDS ORDERED: Warfarin TAB(*) 5 MG PO ONE (17:00)
[2017-01-20] MEDS: metFORMIN* 1,000 MG TAB PO SCH (17:17)
[2017-01-20] MEDS: Tamsulosin CAP* 0.4 MG PO SCH (17:17)
[2017-01-20] MEDS: Azithromycin TAB* 250 MG PO SCH (17:17)
[2017-01-20] MEDS: glipiZIDE TAB* 5 MG PO SCH (17:17)
[2017-01-20] MEDS: cefTRIAXone VIAL(*) 1,000 MG in NS 0.9% 50 ML* 50 ML IVPB SCH (19:13)
--- NOTE | 2017-01-20 20:55 | ED ---
Shiela Carranza Alok, scribed for Vinny Stevenson MD on 01/18/17 at 1644 . Respiratory - HPI Summary HPI Summary: 81 y/o male presents to the ED from with concern of possible PNA. Pt states he has been experiencing chills, fever, and a flushed feeling accompanied by a productive cough with yellow septum which began today at 1200. He adds feeling SOB worsening with exertion but denies neither any lower extremity edema currently nor any dizziness at this time. He does however note some ankle swelling previously. PMHx includes a fib, DM, prostatic hypertrophy, gout, high blood sugar, COPD, and asthma. Pt is also currently on blood thinners and states he used to smoke tobacco earlier in his life but has since quit. His last diagnosis of PNA occurred approximately 3 months ago. - History of Current Complaint Chief Complaint: EDShortnessOfBreath Stated Complaint: DIFF BREATHING Time Seen by Provider: 01/18/17 16:21 Hx Obtained From: Patient Onset/Duration: Gradual Onset, Lasting Hours, Still Present Timing: Constant Initial Severity: Moderate Current Severity: Moderate Pain Intensity: 0 Character: Cough (Productive) Sputum Amount: Moderate Sputum Color: Yellow Aggravating Factor(s): Exertion Alleviating Factor(s): Nothing Associated Signs and Symptoms: Fever, SOB, Chills - Allergy/Home Medications Allergies/Adverse Reactions: Allergies Allergy/AdvReac Type Severity Reaction Status Date / Time Iodine Allergy Severe Hives Verified 01/20/16 16:13 Amoxicillin Allergy Intermediate Hives Verified 01/20/16 16:13 Banana Allergy AVOIDS Verified 01/20/16 16:13 BECAUSE OF MEDICATION Home Medications: Home Medications Colchicine [Mitigare] 0.6 mg PO SEE INSTRUCTIONS PRN 01/18/17 [History Confirmed 01/18/17] Tamsulosin HCl [Flomax] 0.8 mg PO QPM 01/18/17 [History Confirmed 01/18/17] PMH/Surg Hx/FS Hx/Imm Hx Endocrine/Hematology History: Reports: Hx Anticoagulant Therapy - On warfarin, Hx Diabetes - type 2 dm Denies: Hx Thyroid Disease Cardiovascular History: Reports: Hx Hypertension - CONTROL WITH MEDS Denies: Hx Congestive Heart Failure, Hx Deep Vein Thrombosis, Hx Myocardial Infarction, Hx Pacemaker/ICD Comment Only: 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 Respiratory History: Reports: Hx Asthma, Hx Chronic Obstructive Pulmonary Disease (COPD) - 70%, Other Respiratory Problems/Disorders - SOB WITH EXERTION Denies: Hx Lung Cancer, Hx Pneumonia, Hx Pulmonary Embolism GI History: Denies: Hx Gall Bladder Disease, Hx Gastrointestinal Bleed, Hx Ulcer, Hx Urosepsis History: Reports: Hx Benign Prostatic Hyperplasia, Hx Kidney Stones Denies: Hx Renal Disease Musculoskeletal History: Denies: Hx Arthritis, Hx Osteoporosis Sensory History: Reports: Hx Cataracts - BILATERAL, Hx Contacts or Glasses - GLASSES Denies: Hx Hearing Aid Opthamlomology History: Reports: Hx Cataracts - BILATERAL, Hx Contacts or Glasses - GLASSES Neurological History: Reports: Hx Headaches - WHEN NOT TAKING BP MEDICATION Denies: Hx Dementia, Hx Migraine, Hx Seizures Psychiatric History: Denies: Hx Anxiety, Hx Depression, Hx Schizophrenia, Hx Bipolar Disorder - Surgical History Surgery Procedure, Year, and Place: bilat cataract. Bone marrow biopsy at the [facility] in [place] Infectious Disease History: No Infectious Disease History: Denies: Hx Clostridium Difficile, Hx Hepatitis, Hx Human Immunodeficiency Virus (HIV), Hx of Known/Suspected MRSA, Hx Shingles, Hx Tuberculosis, Hx Known/ Suspected VRE, Hx Known/Suspected VRSA, History Other Infectious Disease, Traveled Outside the in Last 30 Days - Family History Known Family History: Positive: None Negative: Cardiac Disease, Hypertension, Diabetes - Social History Occupation: Retired Lives: With Family - Alcohol Use: None Substance Use Type: Reports: None Hx Tobacco Use: No Smoking Status (MU): Former Smoker Type: Cigarettes Amount Used/How Often: 1 PPD OFF AND ON 15-20 YEARS Length of Time of Smoking/Using Tobacco: OFF AND ON FOR 15-20 YEARS Have You Smoked in the Last Year: No Review of Systems Positive: Fever, Chills, Skin Diaphoresis Positive: Shortness Of Breath, Cough All Other Systems Reviewed And Are Negative: Yes Physical Exam Triage Information Reviewed: Yes Vital Signs On Initial Exam: Initial Vitals Temp Pulse Resp BP Pulse Ox 99.3 F 81 18 160/93 94 01/18/17 16:23 01/18/17 16:23 01/18/17 16:23 01/18/17 16:23 01/18/17 16:23 Vital Signs Reviewed: Yes Appearance: Positive: Well-Appearing, No Pain Distress Skin: Positive: Warm, Skin Color Reflects Adequate Perfusion, Diaphoretic - Mild Head/Face: Positive: Normal Head/Face Inspection Eyes: Positive: Normal ENT: Positive: Normal ENT inspection Neck: Positive: Supple, Nontender Respiratory/Lung Sounds: Positive: Clear to Auscultation, Breath Sounds Present Cardiovascular: Positive: Tachycardia Abdomen Description: Positive: Nontender, Soft Bowel Sounds: Positive: Present Musculoskeletal: Positive: Normal Neurological: Positive: Normal Psychiatric: Positive: Normal, Affect/Mood Appropriate - Rui Coma Scale Coma Scale Total: 15 Diagnostics - Vital Signs Vital Signs Temp Pulse Resp BP Pulse Ox 01/18/17 16:31 99.3 F 81 18 160/93 94 01/18/17 16:23 99.3 F 81 18 160/93 94 - Laboratory Lab Results: Lab Results 01/18/17 01/18/17 01/18/17 Range/Units 17:00 17:00 17:00 WBC 20.0 H (3.5-10.8) 10^3/ul RBC 5.43 H (4.0-5.4) 10^6/ul Hgb 14.6 (14.0-18.0) g/dl Hct 45 (42-52) % MCV 83 (80-94) fL MCH 27 (27-31) pg MCHC 33 (31-36) g/dl RDW 16 H (10.5-15) % Plt Count 559 H (150-450) 10^3/ul MPV 9 (7.4-10.4) um3 Neut % (Auto) 81.3 (38-83) % Lymph % (Auto) 7.8 L (25-47) % [place] % (Auto) 9.3 H (1-9) % Eos % (Auto) 0.8 (0-6) % Baso % (Auto) 0.8 (0-2) % Absolute Neuts (auto) 16.3 H (1.5-7.7) 10^3/ul Absolute Lymphs (auto) 1.6 (1.0-4.8) 10^3/ul Absolute Monos (auto) 1.9 H (0-0.8) 10^3/ul Absolute Eos (auto) 0.2 (0-0.6) 10^3/ul Absolute Basos (auto) 0.2 (0-0.2) 10^3/ul Absolute Nucleated RBC 0.01 10^3/ul Nucleated RBC % 0 INR (Anticoag Therapy) 2.18 H (0.89-1.11) Sodium 134 (133-145) mmol/L Potassium 4.1 (3.5-5.0) mmol/L Chloride 100 L (101-111) mmol/L Carbon Dioxide 24 (22-32) mmol/L Anion Gap 10 (2-11) mmol/L BUN 11 (6-24) mg/dL Creatinine 0.88 (0.67-1.17) mg/dL Est GFR ( Amer) 107.4 (>60) Est GFR (Non-Af Amer) 83.5 (>60) BUN/Creatinine Ratio 12.5 (8-20) Glucose 155 H (70-100) mg/dL Lactic Acid (0.5-2.0) mmol/L Calcium 9.5 (8.6-10.3) mg/dL Total Bilirubin 0.60 (0.2-1.0) mg/dL AST 14 (13-39) U/L ALT 19 (7-52) U/L Alkaline Phosphatase 77 (34-104) U/L Troponin I 0.05 H* (<0.04) ng/mL C-Reactive Protein 7.42 H (< 5.00) mg/L B-Natriuretic Peptide ( - 100) pg/mL Total Protein 6.8 (6.4-8.9) g/dL Albumin 4.0 (3.2-5.2) g/dL Globulin 2.8 (2-4) g/dL Albumin/Globulin Ratio 1.4 (1-3) 01/18/17 01/18/17 Range/Units 17:00 17:00 WBC (3.5-10.8) 10^3/ul RBC (4.0-5.4) 10^6/ul Hgb (14.0-18.0) g/dl Hct (42-52) % MCV (80-94) fL MCH (27-31) pg MCHC (31-36) g/dl RDW (10.5-15) % Plt Count (150-450) 10^3/ul MPV (7.4-10.4) um3 Neut % (Auto) (38-83) % Lymph % (Auto) (25-47) % [place] % (Auto) (1-9) % Eos % (Auto) (0-6) % Baso % (Auto) (0-2) % Absolute Neuts (auto) (1.5-7.7) 10^3/ul Absolute Lymphs (auto) (1.0-4.8) 10^3/ul Absolute Monos (auto) (0-0.8) 10^3/ul Absolute Eos (auto) (0-0.6) 10^3/ul Absolute Basos (auto) (0-0.2) 10^3/ul Absolute Nucleated RBC 10^3/ul Nucleated RBC % INR (Anticoag Therapy) (0.89-1.11) Sodium (133-145) mmol/L Potassium (3.5-5.0) mmol/L Chloride (101-111) mmol/L Carbon Dioxide (22-32) mmol/L Anion Gap (2-11) mmol/L BUN (6-24) mg/dL Creatinine (0.67-1.17) mg/dL Est GFR ( Amer) (>60) Est GFR (Non-Af Amer) (>60) BUN/Creatinine Ratio (8-20) Glucose (70-100) mg/dL Lactic Acid 2.5 H* (0.5-2.0) mmol/L Calcium (8.6-10.3) mg/dL Total Bilirubin (0.2-1.0) mg/dL AST (13-39) U/L ALT (7-52) U/L Alkaline Phosphatase (34-104) U/L Troponin I (<0.04) ng/mL C-Reactive Protein (< 5.00) mg/L B-Natriuretic Peptide 355 H ( - 100) pg/mL Total Protein (6.4-8.9) g/dL Albumin (3.2-5.2) g/dL Globulin (2-4) g/dL Albumin/Globulin Ratio (1-3) Result Diagrams: 01/20/17 06:15 01/20/17 06:15 Lab Statement: Any lab studies that have been ordered have been reviewed, and results considered in the medical decision making process. - CT Chest CT CT Interpretation: Positive (See Comments) - IMPRESSION: LINGULAR PNEUMONIA. SUGGEST FOLLOW-UP. CT Interpretation Completed By: Radiologist - EKG 4006 Cardiac Rate: NL EKG Rhythm: Sinus Rhythm - 92 bpm Disposition - Course Course Of Treatment: Mr. Islas does not look toxic but he has pneumonia and is having some respiratory distress. - Diagnoses Provider Diagnoses: Pneumonia - Physician Notifications Discussed Care Of Patient With: Dr Payne (Hospitalist) @ 17:45 - Will admit patient Discharge - Discharge Plan Condition: Stable Disposition: ADMITTED TO [facility] documentation as recorded by the Shiela jade Alok accurately reflects the service I personally performed and the decisions made by me, Vinny Stevenson MD.
[2017-01-21] MEDS: Albuterol/Ipratropium NEB.SOL* Albuterol 2.5 MG/Ipratropium 0.5 MG 3 ML INH SCH ×2 (01:17→08:47)
[2017-01-21] MEDS: methylPREDNISolone SOD SUCC* 40 MG/ML VIAL IV SCH (04:04)
[2017-01-21 06:23] LABS: Hematocrit 44 % (42-52); Hemoglobin 14.1 g/dl (14.0-18.0); Mean Corpuscular HGB Conc 32 g/dl (31-36); Mean Corpuscular Hemoglobin 27 pg (27-31); Mean Corpuscular Volume 82 fL (80-94); Mean Platelet Volume 9 um3 (7.4-10.4); Red Blood Count 5.29 10^6/ul (4.0-5.4); Red Cell Distribution Width 16 % (10.5-15)
[2017-01-21 06:44] LABS: BUN/Creatinine Ratio 25.6 (8-20); Calcium 9.2 mg/dL (8.6-10.3); EGFR African American 123.5 (>60); Potassium 4.9 mmol/L (3.5-5.0)
[2017-01-21 07:41] VITALS: BP 134/80
[2017-01-21] MEDS: Insulin LISPRO* 1 UNITS UNIT SUBCUT SCH ×2 (08:35→12:49)
[2017-01-21] MEDS: metFORMIN* 1,000 MG TAB PO SCH (08:35)
[2017-01-21] MEDS: glipiZIDE TAB* 5 MG PO SCH (08:35)
[2017-01-21] MEDS: Cyanocobalamin TAB* 500 MCG PO SCH (08:36)
[2017-01-21] MEDS: Finasteride TAB* 5 MG PO SCH (08:36)
[2017-01-21] MEDS: Benzonatate CAP* 100 MG PO SCH (08:36)
[2017-01-21] MEDS: amLODIPine TAB* 5 MG PO SCH (08:36)
[2017-01-21] MEDS: Losartan TAB* 25 MG PO SCH (08:36)
[2017-01-21] MEDS: Cholecalciferol TAB* 400 UNIT PO SCH (08:36)
[2017-01-21] MEDS: Atenolol TAB* 50 MG PO SCH (08:36)
[2017-01-21] MEDS: Allopurinol TAB* 100 MG PO SCH (08:36)
[2017-01-21] MEDS ORDERED: Mometasone/Formoter 200/5 MDI INH SCH (09:00)
--- NOTE | 2017-01-21 11:59 | PN ---
Subjective Date of Service: 01/21/17 Interval History: Pt is feeling better today than yesterday but still more SOB than usual. He feels like he could not go outside to work in the yard currently though he was able to do 3 laps around the floor earlier today. Objective Active Medications: Acetaminophen (Tylenol Tab*) 650 mg PO Q6H PRN PRN Reason: PAIN Last Admin: 01/19/17 22:20 Dose: 650 mg Albuterol (Ventolin Hfa Inhaler*) 2 puff INH Q4H PRN PRN Reason: COUGH Allopurin[facility] ([facility]oprim Tab*) [facility] Last Admin: 01/21/17 08:36 Dose: 100 mg Amlodipine Besylate (Norvasc Tab*) 10 mg PO [facility] Last Admin: 01/21/17 08:36 Dose: 10 mg Atenolol (Tenormin Tab*) 100 mg PO BID [facility] Last Admin: 01/21/17 08:36 Dose: 100 mg Azithromycin (Zithromax Tab*) 500 mg PO DAILY@1700 [facility] Last Admin: 01/20/17 17:17 Dose: 500 mg Benzonatate (Tessalon Cap*) 100 mg PO BID [facility] Last Admin: 01/21/17 08:36 Dose: 100 mg Cholecalciferol (Vitamin D Tab*) [facility] Last Admin: 01/21/17 08:36 Dose: 400 unit Cyanocobalamin (Vitamin B12 Tab*) 250 [facility]cg [facility] Last Admin: 01/21/17 08:36 Dose: 250 mcg Dextrose (D50w Syringe 50 Ml*) 12.5 gm IV PUSH .FOR FS < 60 - SS PRN PRN Reason: FS < 60 Finasteride (Proscar Tab*) 5 mg PO DAILY [facility] Last Admin: 01/21/17 08:36 Dose: 5 mg Glipizide (Glucotrol Tab*) 5 mg PO 0800,1700 [facility] Last Admin: 01/21/17 08:35 Dose: 5 mg Guaifenesin/Dextromethorphan (Robitussin Dm*) 10 ml PO Q4H PRN PRN Reason: COUGH Ceftriaxone Sodium 1,000 mg/ (Sodium Chloride) 50 mls @ 200 mls/hr IVPB Q24H [facility] Last Admin: 01/20/17 19:13 Dose: 200 mls/hr Insulin Human Lispro (Humalog*) [address] [facility] PRN Reason: Protocol Last Admin: 01/21/17 08:35 Dose: 4 unit Losartan Potassium (Cozaar Tab*) 50 mg PO DAILY [facility] Last Admin: 01/21/17 08:36 Dose: 50 mg Melatonin (Melatonin (Nf)) 3 mg PO BEDTIME PRN; Protocol PRN Reason: SLEEP Last Admin: 01/20/17 20:23 Dose: 3 mg Metformin HCl (Glucophage*) 1,[address] [facility] Last Admin: 01/21/17 08:35 Dose: 1,000 mg Methylprednisolone Sodium Succinate (Solu-Medrol*) 40 mg IV Q12H [facility] Last Admin: 01/21/17 04:04 Dose: 40 mg Mometasone Furoate/Formoterol Fumar (Dulera 200/5 Mdi*) 2 puff INH BID [facility] Pharmacy Profile Note (Coumadin Daily Reminder*) 1 note FOLLOW UP 1700 PENDING SALE TO [facility] Last Admin: 01/20/17 17:17 Dose: 1 note Tamsulosin HCl (Flomax Cap*) 0.8 mg PO QPM [facility] Last Admin: 01/20/17 17:17 Dose: 0.8 mg Vital Signs 01/20/17 01/20/17 01/20/17 13:50 14:05 15:41 Temperature 98.8 F 98.3 F Pulse Rate 86 94 101 Respiratory 18 20 Rate Blood Pressure 106/37 137/60 (mmHg) O2 Sat by Pulse 96 100 94 Oximetry 01/20/17 01/20/17 01/20/17 16:46 20:00 20:25 Temperature Pulse Rate 97 Respiratory 19 16 Rate Blood Pressure (mmHg) O2 Sat by Pulse 96 95 Oximetry 01/20/17 01/20/17 01/21/17 23:27 23:35 07:29 Temperature 98.4 F 97.3 F Pulse Rate 111 89 98 Respiratory 20 Rate Blood Pressure 76/54 111/60 134/80 (mmHg) O2 Sat by Pulse 95 97 Oximetry 01/21/17 01/21/17 08:00 08:46 Temperature Pulse Rate Respiratory 19 Rate Blood Pressure (mmHg) O2 Sat by Pulse 94 Oximetry Oxygen Devices in Use Now: None Appearance: Elderly male sitting in a chair, NAD Eyes: No Scleral Icterus Ears/Nose/Mouth/Throat: Mucous Membranes Moist Respiratory: Symmetrical Chest Expansion and Respiratory Effort, - - + LLL crackles Cardiovascular: NL Sounds; No Murmurs; No JVD, No Edema, - - irregularly irregular Abdominal: NL Sounds; No Tenderness; No Distention Extremities: No Clubbing, Cyanosis Skin: No Rash or Ulcers, No Nodules or Sclerosis Neurological: Alert and Oriented x 3 Result Diagrams: 01/21/17 05:50 01/21/17 05:50 Additional Lab and Data: Lab Results 01/18/17 01/18/17 01/18/17 Range/Units 17:00 17:00 17:00 WBC 20.0 H (3.5-10.8) 10^3/ul RBC 5.43 H (4.0-5.4) 10^6/ul Hgb 14.6 (14.0-18.0) g/dl Hct 45 (42-52) % MCV 83 (80-94) fL MCH 27 (27-31) pg MCHC 33 (31-36) g/dl RDW 16 H (10.5-15) % Plt Count 559 H (150-450) 10^3/ul MPV 9 (7.4-10.4) um3 Neut % (Auto) 81.3 (38-83) % Lymph % (Auto) 7.8 L (25-47) % [place] % (Auto) 9.3 H (1-9) % Eos % (Auto) 0.8 (0-6) % Baso % (Auto) 0.8 (0-2) % Absolute Neuts (auto) 16.3 H (1.5-7.7) 10^3/ul Absolute Lymphs (auto) 1.6 (1.0-4.8) 10^3/ul Absolute Monos (auto) 1.9 H (0-0.8) 10^3/ul Absolute Eos (auto) 0.2 (0-0.6) 10^3/ul Absolute Basos (auto) 0.2 (0-0.2) 10^3/ul Absolute Nucleated RBC 0.01 10^3/ul Nucleated RBC % 0 INR (Anticoag Therapy) 2.18 H (0.89-1.11) Sodium 134 (133-145) mmol/L Potassium 4.1 (3.5-5.0) mmol/L Chloride 100 L (101-111) mmol/L Carbon Dioxide 24 (22-32) mmol/L Anion Gap 10 (2-11) mmol/L BUN 11 (6-24) mg/dL Creatinine 0.88 (0.67-1.17) mg/dL Est GFR ( Amer) 107.4 (>60) Est GFR (Non-Af Amer) 83.5 (>60) BUN/Creatinine Ratio 12.5 (8-20) Glucose 155 H (70-100) mg/dL Lactic Acid (0.5-2.0) mmol/L Calcium 9.5 (8.6-10.3) mg/dL Total Bilirubin 0.60 (0.2-1.0) mg/dL AST 14 (13-39) U/L ALT 19 (7-52) U/L Alkaline Phosphatase 77 (34-104) U/L Troponin I 0.05 H* (<0.04) ng/mL C-Reactive Protein 7.42 H (< 5.00) mg/L B-Natriuretic Peptide ( - 100) pg/mL Total Protein 6.8 (6.4-8.9) g/dL Albumin 4.0 (3.2-5.2) g/dL Globulin 2.8 (2-4) g/dL Albumin/Globulin Ratio 1.4 (1-3) 01/18/17 01/18/17 Range/Units 17:00 17:00 WBC (3.5-10.8) 10^3/ul RBC (4.0-5.4) 10^6/ul Hgb (14.0-18.0) g/dl Hct (42-52) % MCV (80-94) fL MCH (27-31) pg MCHC (31-36) g/dl RDW (10.5-15) % Plt Count (150-450) 10^3/ul MPV (7.4-10.4) um3 Neut % (Auto) (38-83) % Lymph % (Auto) (25-47) % [place] % (Auto) (1-9) % Eos % (Auto) (0-6) % Baso % (Auto) (0-2) % Absolute Neuts (auto) (1.5-7.7) 10^3/ul Absolute Lymphs (auto) (1.0-4.8) 10^3/ul Absolute Monos (auto) (0-0.8) 10^3/ul Absolute Eos (auto) (0-0.6) 10^3/ul Absolute Basos (auto) (0-0.2) 10^3/ul Absolute Nucleated RBC 10^3/ul Nucleated RBC % INR (Anticoag Therapy) (0.89-1.11) Sodium (133-145) mmol/L Potassium (3.5-5.0) mmol/L Chloride (101-111) mmol/L Carbon Dioxide (22-32) mmol/L Anion Gap (2-11) mmol/L BUN (6-24) mg/dL Creatinine (0.67-1.17) mg/dL Est GFR ( Amer) (>60) Est GFR (Non-Af Amer) (>60) BUN/Creatinine Ratio (8-20) Glucose (70-100) mg/dL Lactic Acid 2.5 H* (0.5-2.0) mmol/L Calcium (8.6-10.3) mg/dL Total Bilirubin (0.2-1.0) mg/dL AST (13-39) U/L ALT (7-52) U/L Alkaline Phosphatase (34-104) U/L Troponin I (<0.04) ng/mL C-Reactive Protein (< 5.00) mg/L B-Natriuretic Peptide 355 H ( - 100) pg/mL Total Protein (6.4-8.9) g/dL Albumin (3.2-5.2) g/dL Globulin (2-4) g/dL Albumin/Globulin Ratio (1-3) Microbiology and Other Data: Microbiology 01/19/17 16:00 Legionella Urinary Antigen - Final Urine Negative Legionella Streptococcus pneumoniae Ag Screen - Final Negative S. pneumo Antigen 01/18/17 23:40 Gram Stain - Final Sputum Expectorated Assess/Plan/Problems-Billing Mr. Islas is a 81yo M with PMHx of COPD, Afib, type 2 DM, HTN, who presented to ED with c/o SOB, cough, and fever, found to have pneumonia. - Patient Problems (1) Pneumonia Current Visit: Yes Status: Acute Code(s): J18.9 - PNEUMONIA, UNSPECIFIED ORGANISM SNOMED Code(s): 636943659 Comment: CT chest on admission showed a lingular pneumonia. So far all testing has been negative as to the pathogen. BOOP or TUBE TESTER are possibilities but these need to be diagnosed with bronchoscopy. Will treat the patient for a total of 10 days-change to vantin and azithromycin to complete the treatment. Follow up with Dr. Correa next week for bronchoscopy. Set pt up with nebulizer for home. Continue inhaled steroid and spiriva as well. (2) COPD (chronic obstructive pulmonary disease) Current Visit: Yes Status: Acute Code(s): J44.9 - CHRONIC OBSTRUCTIVE PULMONARY DISEASE, UNSPECIFIED SNOMED Code(s): 07082731 Comment: No further wheezing. Will send pt home on prednisone and with nebulizer. (3) Atrial fibrillation Current Visit: Yes Status: Acute Onset Date: 08/20/14 Code(s): I48.91 - UNSPECIFIED ATRIAL FIBRILLATION SNOMED Code(s): 97678599 Comment: Rate is for the most part controlled. Continue atenolol and coumadin. Will need follow up INR 01/23/17. (4) Diabetes mellitus Current Visit: Yes Status: Chronic Code(s): E11.9 - TYPE 2 DIABETES MELLITUS WITHOUT COMPLICATIONS SNOMED Code(s): 18077016 Comment: Continue home medication regimen. (5) Hypertension Current Visit: Yes Status: Chronic Code(s): I10 - ESSENTIAL (PRIMARY) HYPERTENSION SNOMED Code(s): 57701140 Comment: BP is under good control. Continue atenolol, losartan and amlodipine. (6) DVT prophylaxis Current Visit: Yes Status: Acute Code(s): PEL8884 - SNOMED Code(s): 414953599 Comment: Coumadin though INR is subtherapeutic. (7) Full code status Current Visit: Yes Status: Acute Code(s): Z78.9 - OTHER SPECIFIED HEALTH STATUS SNOMED Code(s): 967863519 Status and Disposition: .d/c home
--- NOTE | 2017-01-21 16:28 | PN ---
Progress Note - Progress Note Note: Pulm consult f/u note 01/21/17. Pt seen and examined at bedside. Pt reports improvement in breathing, still dyspneic with exertion. Active Medications Generic Name Dose Route Start Last Admin Trade Name Freq PRN Reason Stop Dose Admin Acetaminophen 650 mg 01/18/17 23:14 01/19/17 22:20 Tylenol Tab* PO 650 mg Q6H PRN Administration PAIN Albuterol 2 puff 01/18/17 18:40 Ventolin Hfa Inhaler* INH Q4H PRN COUGH Allopurinol 100 mg 01/19/17 09:00 01/21/17 08:36 Zyloprim Tab* PO 100 mg QAM YOANDY Administration Amlodipine Besylate 10 mg 01/19/17 09:00 01/21/17 08:36 Norvasc Tab* PO 10 mg QAM YOANDY Administration Atenolol 100 mg 01/18/17 21:00 01/21/17 08:36 Tenormin Tab* PO 100 mg BID YOANDY Administration Azithromycin 500 mg 01/18/17 17:00 01/20/17 17:17 Zithromax Tab* PO 500 mg DAILY@1700 YOANDY Administration Benzonatate 100 mg 01/18/17 21:00 01/21/17 08:36 Tessalon Cap* PO 100 mg BID YOANDY Administration Cholecalciferol 400 unit 01/19/17 09:00 01/21/17 08:36 Vitamin D Tab* PO 400 unit QAM YOANDY Administration Cyanocobalamin 250 mcg 01/19/17 09:00 01/21/17 08:36 Vitamin B12 Tab* PO 250 mcg QAM YOANDY Administration Dextrose 12.5 gm 01/18/17 18:28 D50w Syringe 50 Ml* IV PUSH .FOR FS < 60 - SS PRN FS < 60 Finasteride 5 mg 01/19/17 09:00 01/21/17 08:36 Proscar Tab* PO 5 mg DAILY YOANDY Administration Glipizide 5 mg 01/20/17 17:00 01/21/17 08:35 Glucotrol Tab* PO 5 mg 0800,1700 YOANDY Administration Guaifenesin/Dextromethorphan 10 ml 01/18/17 18:28 Robitussin Dm* PO Q4H PRN COUGH Ceftriaxone Sodium 1,000 mg/ 50 mls @ 200 mls/hr 01/18/17 20:00 01/20/17 19: 13 Sodium Chloride IVPB 200 mls/hr Q24H YOANDY Administration Insulin Human Lispro 0 units 01/19/17 07:30 01/21/17 12:49 Humalog* SUBCUT 4 unit AC YOANDY Administration Protocol Losartan Potassium 50 mg 01/19/17 09:00 01/21/17 08:36 Cozaar Tab* PO 50 mg DAILY YOANDY Administration Melatonin 3 mg 01/20/17 16:02 01/20/17 20:23 Melatonin (Nf) PO 3 mg BEDTIME PRN Administration SLEEP Protocol Metformin HCl 1,000 mg 01/20/17 16:30 01/21/17 08:35 Glucophage* PO 1,000 mg BID AC YOANDY Administration Methylprednisolone Sodium Succinate 40 mg 01/20/17 16:00 01/21/17 04:04 Solu-Medrol* IV 40 mg Q12H YOANDY Administration Mometasone Furoate/Formoterol Fumar 2 puff 01/21/17 09:00 01/21/17 11:59 Dulera 200/5 Mdi* INH 2 puff BID YOANDY Administration Pharmacy Profile Note 1 note 01/19/17 17:00 01/20/17 17:17 Coumadin Daily Reminder* FOLLOW UP 1 note 1700 YOANDY Administration Tamsulosin HCl 0.8 mg 01/19/17 18:00 01/20/17 17:17 Flomax Cap* PO 0.8 mg QPM YOANDY Administration Vital Signs Temp Pulse Resp BP Pulse Ox 97.3 F 98 19 134/80 94 01/21/17 07:29 01/21/17 07:29 01/21/17 08:00 01/21/17 07:29 01/21/17 08:46 Appearance: Elderly male lying in bed, NAD HEENT: No Scleral Icterus, Mucous Membranes Moist Respiratory: Symmetrical Chest Expansion and Respiratory Effort,diminished breath sounds in all lung ulrich with diffuse scattered wheezes Cardiovascular: NL Sounds; No Murmurs; No JVD, - - irregularly irregular but controlled rate Abdominal: NL Sounds; No Tenderness; No Distention Extremities: No Clubbing, Cyanosis Skin: No Rash or Ulcers, No Nodules or Sclerosis Neurological: Alert and Oriented x 3 Laboratory Last Values WBC 14.0 10^3/ul (3.5-10.8) H 01/21/17 05:50 RBC 5.29 10^6/ul (4.0-5.4) 01/21/17 05:50 Hgb 14.1 g/dl (14.0-18.0) 01/21/17 05:50 Hct 44 % (42-52) 01/21/17 05:50 MCV 82 fL (80-94) 01/21/17 05:50 MCH 27 pg (27-31) 01/21/17 05:50 MCHC 32 g/dl (31-36) 01/21/17 05:50 RDW 16 % (10.5-15) H 01/21/17 05:50 Plt Count 490 10^3/ul (150-450) H 01/21/17 05:50 MPV 9 um3 (7.4-10.4) 01/21/17 05:50 Neut % (Auto) 80.7 % (38-83) 01/20/17 06:15 Lymph % (Auto) 8.2 % (25-47) L 01/20/17 06:15 [place] % (Auto) 10.2 % (1-9) H 01/20/17 06:15 Eos % (Auto) 0.4 % (0-6) 01/20/17 06:15 Baso % (Auto) 0.5 % (0-2) 01/20/17 06:15 Absolute Neuts (auto) 17.5 10^3/ul (1.5-7.7) H 01/20/17 06:15 Absolute Lymphs (auto) 1.8 10^3/ul (1.0-4.8) 01/20/17 06:15 Absolute Monos (auto) 2.2 10^3/ul (0-0.8) H 01/20/17 06:15 Absolute Eos (auto) 0.1 10^3/ul (0-0.6) 01/20/17 06:15 Absolute Basos (auto) 0.1 10^3/ul (0-0.2) 01/20/17 06:15 Absolute Nucleated RBC 0.01 10^3/ul 01/20/17 06:15 Nucleated RBC % 0.1 01/20/17 06:15 INR (Anticoag Therapy) 1.26 (0.89-1.11) H 01/21/17 05:50 Sodium 134 mmol/L (133-145) 01/21/17 05:50 Potassium 4.9 mmol/L (3.5-5.0) 01/21/17 05:50 Chloride 101 mmol/L (101-111) 01/21/17 05:50 Carbon Dioxide 24 mmol/L (22-32) 01/21/17 05:50 Anion Gap 9 mmol/L (2-11) 01/21/17 05:50 BUN 20 mg/dL (6-24) 01/21/17 05:50 Creatinine 0.78 mg/dL (0.67-1.17) 01/21/17 05:50 Est GFR ( Amer) 123.5 (>60) 01/21/17 05:50 Est GFR (Non-Af Amer) 96.0 (>60) 01/21/17 05:50 BUN/Creatinine Ratio 25.6 (8-20) H 01/21/17 05:50 Glucose 176 mg/dL (70-100) H 01/21/17 05:50 POC Glucose (mg/dL) 220 mg/dL (74-106) H 01/21/17 12:11 Hemoglobin A1c 6.6 % (Less than 6.0) H 01/20/17 06:15 Lactic Acid 1.3 mmol/L (0.5-2.0) 01/18/17 20:37 Calcium 9.2 mg/dL (8.6-10.3) 01/21/17 05:50 Total Bilirubin 0.60 mg/dL (0.2-1.0) 01/18/17 17:00 AST 14 U/L (13-39) 01/18/17 17:00 ALT 19 U/L (7-52) 01/18/17 17:00 Alkaline Phosphatase 77 U/L (34-104) 01/18/17 17:00 Troponin I 0.05 ng/mL (<0.04) H* 01/18/17 22:32 C-Reactive Protein 66.20 mg/L (< 5.00) H 01/20/17 06:15 B-Natriuretic Peptide 355 pg/mL (-100) H 01/18/17 17:00 Total Protein 6.8 g/dL (6.4-8.9) 01/18/17 17:00 Albumin 4.0 g/dL (3.2-5.2) 01/18/17 17:00 Globulin 2.8 g/dL (2-4) 01/18/17 17:00 Albumin/Globulin Ratio 1.4 (1-3) 01/18/17 17:00 Influenza A (Rapid) Negative (Negative) 01/18/17 18:54 Influenza B (Rapid) Negative (Negative) 01/18/17 18:54 01/20/17 06:15 Microbiology and Other Data: Microbiology 01/19/17 16:00 Legionella Urinary Antigen - Final Urine Negative Legionella Streptococcus pneumoniae Ag Screen - Final Negative S. pneumo Antigen 01/18/17 23:40 Gram Stain - Final Sputum Expectorated Pt is a 81yo M with PMHx of COPD, Afib, type 2 DM, HTN, who presented to ED with c/o SOB, cough, and fever, found to have REX pneumonia. 1. REX PNA with recurrent PNAs since October 2. Acute COPD exacerbation Continue ceftriaxone and azithromycin. Recommend nebs and steroids taper Patient will need bronchoscopy with transbronchial biopsy as outpatient to evaluate BOOP vs INTERNAL INVESTIGATOR Will need to obtain sl study results that was done at outside facility Will have f/u appt in pulm clinic in 2 weeks
--- NOTE | 2017-01-22 10:27 | DS ---
DISCHARGE SUMMARY: DATE OF ADMISSION: 01/18/17 DATE OF DISCHARGE: 01/21/17 PRIMARY CARE PROVIDER: Dr. Tsang. PRINCIPAL DIAGNOSIS: Left lingular pneumonia. SECONDARY DIAGNOSES: 1. Chronic obstructive pulmonary disease. 2. Atrial fibrillation. 3. Type 2 diabetes. 4. Hypertension. DISCHARGE MEDICATIONS: 1. Flomax 0.8 mg p.o. q.h.s. 2. Vitamin D 400 units p.o. daily. 3. Atenolol 100 mg p.o. b.i.d. 4. Amlodipine 10 mg p.o. daily. 5. Albuterol 2 puffs inhaled q. 4 hours p.r.n. shortness of breath. 6. Glipizide 5 mg p.o. b.i.d. 7. Coumadin 5 mg p.o. daily (increase dose x2 days, then back to home dose). 8. Metformin 1000 mg p.o. b.i.d. 9. Losartan 50 mg p.o. daily. 10. Finasteride 5 mg p.o. daily. 11. Vitamin B12 250 mcg p.o. daily. 12. Colchicine 0.6 mg p.o. daily p.r.n. gout. 13. Ammonium lactate applied to feet as needed. 14. Dulera 200/5 two puffs inhaled twice daily. 15. Vantin 200 mg p.o. q. 12 hours x13 doses. 16. Tessalon 100 mg p.o. t.i.d. p.r.n. cough. 17. Azithromycin 500 mg p.o. daily x3 doses. HOSPITAL COURSE: Mr. Islas is a 81-year-old male who presented to the emergency room on 01/18/17 with complaints of shortness of breath, cough, and fever. The patient was found to have a left lingular pneumonia. Of note, the patient was hospitalized in October and November for pneumonia during those admissions. The patient was felt to most likely have pneumonia given his elevated white blood cell count and symptoms. Previously, he was treated with Levaquin, therefore it was decided to utilize ceftriaxone and azithromycin. The patient was admitted and started on this therapy. On the day after admission, he was seen in consultation by Dr. Correa, who felt that the patient' s left lingular pneumonia could be infectious versus BOOP or BUS DRIVER/MONITOR given recurrence and improvement after treatment. It was felt that he is going to need a bronchoscopy and transbronchial biopsy of the left upper lobe, however, this will need to be arranged as an outpatient. The patient did improve some during the course of this hospitalization. He continues to feel short of breath , however, he was able to ambulate around the unit three times continuously without supplemental oxygen or needing to stop. The patient's white blood cell count was elevated on admission at 20,000 and trended down to 14,000 on discharge. The patient noticed most significant improvement after starting on steroids and standing nebulizer treatments. The patient has been set up for a nebulizer at home. The patient will follow up with Dr. Correa next week for bronchoscopy. In the meantime, the patient has been recommended to continue to take his antibiotics as prescribed. He will utilize the nebulizer treatments standing for the next couple of days then use them as needed. The patient understands that it will take some time for him to recover. The patient has been otherwise maintained on his usual home medication regimen with the exception of switching from Symbicort to Dulera. At this time, the patient was felt to be stable for discharge home. FOLLOWUP CONCERNS: The patient is being discharged home today, 01/21/17. He is to follow up with Dr. Tsang in the next 4 to [address] Correa next week. ACTIVITY LEVEL: As tolerated. DIET: Diabetic. CONDITION ON DISCHARGE: Stable. TIME SPENT: Forty minutes was spent discharging this patient. CC: Dr. Tsang* [id number]/[facility] #: [id number] MTDD
== END 2017-01-21 15:40 | disposition home or self-care (01) | DRG 196 ==
LOC: ED 16:16 → MED 18:25
PROVIDERS: ADMIT Internal Medicine; ATTEND Hospitalist
DX: J84.116 Cryptogenic organizing pneumonia (principal); J18.9 Pneumonia, unspecified organism; J96.01 Acute respiratory failure with hypoxia; J44.0 Chronic obstructive pulmonary disease with (acute) lower respiratory infection; E87.2 Acidosis; E11.9 Type 2 diabetes mellitus without complications; J84.89 Other specified interstitial pulmonary diseases; I48.91 Unspecified atrial fibrillation; D72.829 Elevated white blood cell count, unspecified; J44.1 Chronic obstructive pulmonary disease with (acute) exacerbation; I10 Essential (primary) hypertension; M10.9 Gout, unspecified; Z79.84 Long term (current) use of oral hypoglycemic drugs; Z79.01 Long term (current) use of anticoagulants; N40.0 Benign prostatic hyperplasia without lower urinary tract symptoms; J45.909 Unspecified asthma, uncomplicated; Z88.8 Allergy status to other drugs, medicaments and biological substances; Z88.1 Allergy status to other antibiotic agents; Z91.018 Allergy to other foods; Z87.442 Personal history of urinary calculi; Z98.42 Cataract extraction status, left eye; Z98.41 Cataract extraction status, right eye; Z87.891 Personal history of nicotine dependence; R79.89 Other specified abnormal findings of blood chemistry; E66.9 Obesity, unspecified; Z68.29 Body mass index [BMI] 29.0-29.9, adult
CPT/HCPCS: 36415; 71020; 71250; 80048; 80053; 83036; 83605; 83880; 84484; 85025; 85027; 85610; 86140; 87040; 87070; 87205; 87502; 87899; 93005; 94640; 94760; 99212; 99284; A9270-GY; G0463; J0696; J2920

== ENCOUNTER 2018-04-23 18:38 | Emergency (ER) | payer MEDICARE, OTHER ==
[2018-04-23 19:46] LABS: INR 2.52 (0.77-1.02)
[2018-04-23 20:07] VITALS: BP 107/76
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
== END 2018-04-23 20:58 | disposition home or self-care (01) ==
LOC: EDBD 18:38 → ED 18:38
DX: Z04.1 Encounter for examination and observation following transport accident (principal); I10 Essential (primary) hypertension; Z86.73 Personal history of transient ischemic attack (TIA), and cerebral infarction without residual deficits; Z79.01 Long term (current) use of anticoagulants; Z79.899 Other long term (current) drug therapy; Z87.891 Personal history of nicotine dependence; Z88.3 Allergy status to other anti-infective agents; Z88.8 Allergy status to other drugs, medicaments and biological substances
CPT/HCPCS: 36415; 70450; 85610; 99282

== ENCOUNTER 2018-11-22 10:20 | Emergency (ER) | payer MEDICARE, OTHER ==
[2018-11-22 10:31] VITALS: BP 145/99
--- NOTE | 2018-11-22 10:51 | UC ---
Respiratory Complaint HPI - HPI Summary HPI Summary: reports 2 wks cough and pleuritic chest pain. he is concerned his copd is worsening. no sick contacts. 3 wks ago rx'd levofloxacin , improved then cough returned. - History of Current Complaint Chief Complaint: UCRespiratory Stated Complaint: CONGESTED Time Seen by Provider: 11/22/18 10:38 Hx Obtained From: Patient Pain Intensity: 6 Pain Scale Used: 0-10 Numeric Character: Cough: Productive Aggravating Factors: Deep Breaths, Recumbent Position Alleviating Factors: Bronchodilator - used albuterol this AM, Upright Position Associated Signs And Symptoms: Positive: Fever, Pleuritic Chest Pain, Nasal Congestion. Negative: Dyspnea, Chills, Wheezing, Edema - Allergies/Home Medications Allergies/Adverse Reactions: Allergies Allergy/AdvReac Type Severity Reaction Status Date / Time amoxicillin Allergy Hives Verified 11/22/18 10:33 iodine Allergy Rash Verified 11/22/18 10:33 banana Allergy avoids due Uncoded 11/22/18 10:33 to meds PMH/Surg Hx/FS Hx/Imm Hx - Additional Past Medical History Additional PMH: gout Previously Healthy: Yes Endocrine History: Diabetes Cardiovascular History: Cardiac Disease, Hypertension, Atrial Fibrillation Respiratory History: COPD Other History Of: Anticoagulant Therapy - On warfarin Negative For: HIV, Hepatitis B, Hepatitis C - Surgical History Surgical History: Yes Surgery Procedure, Year, and Place: bilat cataract. [facility] marrow [facility] in [place] - Family History Known Family History: Positive: None Negative: Cardiac Disease, Hypertension, Diabetes - Social History Alcohol Use: None Substance Use Type: None Smoking Status (MU): Former Smoker Type: Cigarettes Amount Used/How Often: 1 PPD OFF AND ON 15-20 YEARS Length of Time of Smoking/Using Tobacco: OFF AND ON FOR 15-20 YEARS Have You Smoked in the Last Year: No When Did the Patient Quit Smoking/Using Tobacco: 2003 - Immunization History Most Recent Influenza Vaccination: Fall 2015 Most Recent Tetanus Shot: "a while" Most Recent Pneumonia Vaccination: 4-5 yrs ago Review of Systems All Other Systems Reviewed And Are Negative: Yes Constitutional: Positive: Fever Skin: Positive: Negative Eyes: Positive: Negative ENT: Positive: Sinus Congestion. Negative: Sore Throat, Ear Ache, Nasal Discharge, Sinus Pain/Tenderness Respiratory: Positive: Cough. Negative: Shortness Of Breath Cardiovascular: Positive: Other - denies PND Gastrointestinal: Positive: Negative Musculoskeletal: Negative: Edema - denies LE Neurological: Negative: Headache, Weakness Physical Exam Triage Information Reviewed: Yes Appearance: Well-Appearing, No Pain Distress Vital Signs: Initial Vital Signs Temp 98.4 F 11/22/18 10:28 Pulse 94 11/22/18 10:28 Resp 17 11/22/18 10:28 BP 145/99 11/22/18 10:28 Pulse Ox 100 11/22/18 10:28 Eyes: Positive: Conjunctiva Clear ENT: Positive: Pharynx normal, TMs normal Neck: Positive: Supple, Nontender Respiratory: Positive: No respiratory distress, Crackles - R side. Negative: Rhonchi, Stridor, Wheezing Cardiovascular Exam: Normal Musculoskeletal: Positive: No Edema - LE Neurological: Positive: Alert Skin Exam: Normal UC Diagnostic Evaluation - Laboratory O2 Sat by Pulse Oximetry: 100 Respiratory Course/Dx - Course Course Of Treatment: Subacute productive cough in a pt. w/ COPD. Recent antibx rx but will give a diff. one today given abnormal lung sounds. Afebrile today. Visualized his med list. Not thought to be CHF but have asked him to f/u w/ his pcp if no resolution. for now he should cont. his inhalers, finish new antibx and f/u w/ pcp. - Differential Dx/Diagnosis Differential Diagnosis/HQI/PQRI: Asthma, Bronchitis, CHF Provider Diagnosis: Lower resp. tract infection Discharge - Sign-Out/Discharge Documenting (check all that apply): Patient Departure All imaging exams completed and their final reports reviewed: No Studies - Discharge Plan Condition: Good Disposition: HOME Prescriptions: Azithromycin TAB* [Zithromax TAB (Z-TATIANNA) 250 mg #6 tabs] 2 tab PO .TODAY, THEN 1 DAILY #1 tatianna Patient Education Materials: COPD (Chronic Obstructive Pulmonary Disease) (ED) Referrals: Orlando Brody MD [Primary Care Provider] - Additional Instructions: [facility]. cont. using your inhalers. Continue using warfarin and [facility] know [facility]'re [facility], they will adjust your Warfarin and recheck your INR - Billing Disposition and Condition Condition: GOOD Disposition: Home
== END 2018-11-22 10:59 | disposition home or self-care (01) ==
LOC: UCEAST 10:20
DX: J22 Unspecified acute lower respiratory infection (principal); E11.9 Type 2 diabetes mellitus without complications; I10 Essential (primary) hypertension; J44.9 Chronic obstructive pulmonary disease, unspecified; Z87.891 Personal history of nicotine dependence; Z88.8 Allergy status to other drugs, medicaments and biological substances; Z79.01 Long term (current) use of anticoagulants; Z88.0 Allergy status to penicillin; Z91.018 Allergy to other foods
CPT/HCPCS: 99212; G0463

== ENCOUNTER 2022-12-19 10:08 | Inpatient (IN) ==
[2022-12-19 10:42] LABS: ABS Basophils 0.1 10^3/ul (0-0.2); ABS Eosinophils 0.1 10^3/ul (0-0.6); ABS Lymphocytes 1.1 10^3/ul (1.0-4.8); ABS Monocytes 0.9 10^3/ul (0-0.8); Eosinophil % 0.5 %; Hematocrit 40 % (42-52); Hemoglobin 12.7 g/dL (14.0-18.0); Lymphocyte % 9.3 %; Mean Corpuscular HGB Conc 32 g/dL (31-36); Mean Corpuscular Hemoglobin 32 pg (27-31); Mean Corpuscular Volume 99 fL (80-94); Mean Platelet Volume 8.9 fL (7.4-10.4); Platelet Count 158 10^3/uL (150-450); Red Blood Count 4.01 10^6 /uL (4.18-5.48); Red Cell Distribution Width 16 % (10-15); White Blood Count 12.2 10^3/uL (3.5-10.8)
[2022-12-19 10:54] LABS: Activated Partial Thrombo Time 37.5 seconds (26.0-38.0); INR 1.21 (0.88-1.18)
[2022-12-19 11:10] LABS: Albumin 3.7 g/dL (3.2-5.2); Albumin/Globulin Ratio 1.6 (1-3); Calcium 9.1 mg/dL (8.6-10.3); Creatinine, Serum 1.06 mg/dL (0.67-1.17); Globulin 2.3 g/dL (2-4); Potassium 4.7 mmol/L (3.5-5.0); Total Bilirubin 0.8 mg/dL (0.2-1.0); eGFR CKD-EPI 68.8 (>60)
[2022-12-19] MEDS ORDERED: Morphine 4 MG/ML VIAL (1 ml) IV ONE ×2 (11:53→14:02)
[2022-12-19] MEDS ORDERED: Polyethylene Glycol 3350 17 GM PACKET PO PRN (15:17)
[2022-12-19] MEDS ORDERED: Albuterol HFA INHALER 8 gm MDI INH PRN (15:17)
[2022-12-19] MEDS: Polyethylene Glycol 3350 17 GM PACKET PO PRN (19:49)
[2022-12-19] MEDS: Morphine 2 MG/ML SYRINGE IV PRN (19:50)
[2022-12-19] MEDS: Heparin 5000 UNITS/ML 1 mL VIAL SUBCUT SCH (20:26)
[2022-12-20] MEDS: Heparin 5000 UNITS/ML 1 mL VIAL SUBCUT SCH ×2 (04:12→15:36)
[2022-12-20] MEDS: Morphine 2 MG/ML SYRINGE IV PRN ×2 (05:28→17:44)
[2022-12-20] MEDS: Senna TAB 8.6 mg TAB PO SCH (09:51)
[2022-12-20] MEDS: Lidocaine PATCH 5% PATCH TRANSDERM SCH (09:51)
[2022-12-20] MEDS: Fluticasone NASAL SPRAY 50MCG 16 gm SPRAY BTL INTRANASAL SCH (09:52)
[2022-12-20] MEDS: Polyethylene Glycol 3350 17 GM PACKET PO PRN (10:03)
[2022-12-20 11:50] LABS: ABS Basophils 0.1 10^3/ul (0-0.2); ABS Eosinophils 0.1 10^3/ul (0-0.6); ABS Lymphocytes 1.7 10^3/ul (1.0-4.8); ABS Monocytes 1.1 10^3/ul (0-0.8); ABS Neutrophils 9.2 10^3/ul (1.5-7.7); Eosinophil % 0.9 %; Hematocrit 40 % (42-52); Hemoglobin 12.8 g/dL (14.0-18.0); Lymphocyte % 13.9 %; Mean Corpuscular HGB Conc 32 g/dL (31-36); Mean Corpuscular Hemoglobin 32 pg (27-31); Mean Corpuscular Volume 98 fL (80-94); Mean Platelet Volume 9.9 fL (7.4-10.4); Platelet Count 195 10^3/uL (150-450); Red Blood Count 4.05 10^6 /uL (4.18-5.48); Red Cell Distribution Width 16 % (10-15); White Blood Count 12.2 10^3/uL (3.5-10.8)
[2022-12-20] MEDS: ALOGLIPTIN 12.5 MG PO SCH (13:29)
[2022-12-21] MEDS: Polyethylene Glycol 3350 17 GM PACKET PO PRN (07:57)
[2022-12-21] MEDS: Lidocaine PATCH 5% PATCH TRANSDERM SCH (07:57)
[2022-12-21] MEDS: Morphine 2 MG/ML SYRINGE IV PRN (07:58)
[2022-12-21] MEDS: ALOGLIPTIN 12.5 MG PO SCH (07:59)
[2022-12-21] MEDS: Fluticasone NASAL SPRAY 50MCG 16 gm SPRAY BTL INTRANASAL SCH (08:00)
[2022-12-21] MEDS: Senna TAB 8.6 mg TAB PO SCH (08:00)
[2022-12-21] MEDS ORDERED: Senna TAB 8.6 mg TAB PO PRN (09:58)
[2022-12-21] MEDS: Magnesium Hydroxide LIQ 30 ML UDC PO PRN (18:13)
[2022-12-22] MEDS: Magnesium Hydroxide LIQ 30 ML UDC PO PRN (05:29)
[2022-12-22 07:18] VITALS: BP 146/77
[2022-12-22] MEDS: Lidocaine PATCH 5% PATCH TRANSDERM SCH (07:56)
[2022-12-22] MEDS: Senna TAB 8.6 mg TAB PO SCH (08:00)
[2022-12-22] MEDS: Fluticasone NASAL SPRAY 50MCG 16 gm SPRAY BTL INTRANASAL SCH (08:01)
[2022-12-22] MEDS: ALOGLIPTIN 12.5 MG PO SCH (08:01)
[2022-12-22 11:18] LABS: Rapid COVID-19 Molecular Undetected (Undetected)
[2022-12-22 11:19] LABS: Influenza A Molecular Negative (Negative); Influenza B Molecular Negative (Negative)
== END 2022-12-22 11:40 | DRG 605 ==
LOC: ED 10:08 → EDHOLD 10:08 → SUATTDRO 15:14 → MED 18:58
PROVIDERS: ADMIT Internal Medicine; ATTEND Internal Medicine

== ENCOUNTER 2023-06-05 08:40 | Inpatient (IN) ==
[2023-06-05 09:49] LABS: Hematocrit 43.4 % (38-53); Hemoglobin 14.3 g/dL (13.2-16.3); Mean Corpuscular Hemoglobin 31.8 pg (27-33); Mean Corpuscular Hgb Conc 33.1 g/dL (31-36); Mean Corpuscular Volume 96.2 fL (80-97); Red Blood Count 4.51 10^6/uL (4.06-5.63); Red Cell Distribution Width 21.3 % (12-17); White Blood Count 9.2 10^3/uL (3.6-10.2)
[2023-06-05 09:54] LABS: Creatinine, Serum 1.15 mg/dL (0.67-1.17); Potassium 3.7 mmol/L (3.5-5.0)
[2023-06-05 09:55] LABS: Albumin 3.4 g/dL (3.2-5.2); Albumin/Globulin Ratio 1.2 (1-3); Globulin 2.9 g/dL (2-4); Magnesium 1.8 mg/dL (1.9-2.7); Total Protein 6.3 g/dL (6.4-8.9); eGFR CKD-EPI 62.4 (>60)
[2023-06-05 10:27] LABS: ABS Basophils 0.1 10^3/uL (0.0-0.1); ABS Monocytes 0.5 10^3/uL (0.0-1.1); ABS Neutrophils 7.6 10^3/uL (1.5-7.6); ABS Nucleated RBC 0.02 10^3/ul; Eosinophil % 0.4 %; Lymphocyte % 10.8 %; Nucleated Red Blood Cells % 0.2 /100 WBC (0.0-0.4); Platelet Count 173 10^3/uL (150-450)
[2023-06-05 11:07] LABS: INR 1.43 (0.88-1.18)
[2023-06-05 11:25] LABS: High Sensitivity Troponin 1 Hr 9 pg/mL (<20)
[2023-06-05] MEDS ORDERED: Potassium Chlor 20 meq TAB.ER PO ONE (15:40)
[2023-06-05] MEDS ORDERED: Bumetanide IV 0.25 MG/ML 4 ml VIAL (1 mg) IV SLOW PU ONE (16:00)
[2023-06-05 16:25] LABS: HDL Cholesterol 31.3 mg/dL
[2023-06-05 16:59] LABS: Ferritin 202.6 ng/mL (24-336)
[2023-06-05] MEDS: Digoxin IV 0.5 MG/2 ML AMP (0.25 MG/ML) IV SLOW PU SCH ×2 (18:42→23:08)
[2023-06-05] MEDS: CMCS: Alfuzosin ER 10 mg TAB.ER (NF) 10 MG TAB.ER PO SCH (20:34)
[2023-06-06 06:46] LABS: Albumin 3.1 g/dL (3.2-5.2); Albumin/Globulin Ratio 1.1 (1-3); Calcium 8.7 mg/dL (8.6-10.3); Creatinine, Serum 1.09 mg/dL (0.67-1.17); Globulin 2.8 g/dL (2-4); Magnesium 1.8 mg/dL (1.9-2.7); Potassium 4.1 mmol/L (3.5-5.0); Total Bilirubin 0.9 mg/dL (0.2-1.0); Total Protein 5.9 g/dL (6.4-8.9); eGFR CKD-EPI 66.5 (>60)
[2023-06-06] MEDS ORDERED: Magnesium Sulfate 2 gm BAG 2 GM/50 ML BAG IVPB ONE (06:51)
[2023-06-06 07:12] LABS: ABS Basophils 0.1 10^3/uL (0.0-0.1); ABS Eosinophils 0.1 10^3/uL (0.0-0.5); ABS Monocytes 0.5 10^3/uL (0.0-1.1); ABS Neutrophils 6.2 10^3/uL (1.5-7.6); ABS Nucleated RBC 0.01 10^3/ul; Eosinophil % 0.9 %; Hematocrit 39.4 % (38-53); Lymphocyte % 12.5 %; Mean Corpuscular Hemoglobin 31.9 pg (27-33); Mean Corpuscular Hgb Conc 33.1 g/dL (31-36); Mean Corpuscular Volume 96.4 fL (80-97); Nucleated Red Blood Cells % 0.1 /100 WBC (0.0-0.4); Platelet Count 156 10^3/uL (150-450); Red Blood Count 4.08 10^6/uL (4.06-5.63); Red Cell Distribution Width 21.3 % (12-17); White Blood Count 7.9 10^3/uL (3.6-10.2)
[2023-06-06] MEDS: Cholecalciferol (VIT D3) 400 units TAB PO SCH (09:14)
[2023-06-06] MEDS: CMCS: Alfuzosin ER 10 mg TAB.ER (NF) 10 MG TAB.ER PO SCH (09:21)
[2023-06-06] MEDS: Senna TAB 8.6 mg TAB PO PRN (11:48)
[2023-06-06] MEDS: Polyethylene Glycol 3350 17 GM PACKET PO PRN (11:48)
[2023-06-06] MEDS ORDERED: Digoxin IV 0.5 MG/2 ML AMP (0.25 MG/ML) IV SLOW PU ONE ×2 (12:53→17:00)
[2023-06-06] MEDS ORDERED: Bumetanide IV 0.25 MG/ML 4 ml VIAL (1 mg) IV SLOW PU ONE (13:30)
[2023-06-06] MEDS: Enoxaparin 100 MG/ML SYR SUBCUT SCH (17:09)
[2023-06-07] MEDS ORDERED: Lidocaine PATCH 4% TOPICAL ONE (03:16)
[2023-06-07] MEDS ORDERED: Lidocaine PATCH 5% PATCH TRANSDERM ONE ×3 (03:30→20:50)
[2023-06-07] MEDS: Enoxaparin 100 MG/ML SYR SUBCUT SCH ×2 (05:32→17:22)
[2023-06-07 06:17] LABS: ABS Basophils 0.1 10^3/uL (0.0-0.1); ABS Eosinophils 0.1 10^3/uL (0.0-0.5); ABS Lymphocytes 1.1 10^3/uL (1.0-4.8); ABS Monocytes 0.6 10^3/uL (0.0-1.1); ABS Neutrophils 7.8 10^3/uL (1.5-7.6); ABS Nucleated RBC 0.02 10^3/ul; Eosinophil % 0.6 %; Hematocrit 40.6 % (38-53); Hemoglobin 13.6 g/dL (13.2-16.3); Lymphocyte % 11.5 %; Mean Corpuscular Hemoglobin 31.6 pg (27-33); Mean Corpuscular Hgb Conc 33.4 g/dL (31-36); Mean Corpuscular Volume 94.7 fL (80-97); Nucleated Red Blood Cells % 0.3 /100 WBC (0.0-0.4); Platelet Count 151 10^3/uL (150-450); Red Blood Count 4.29 10^6/uL (4.06-5.63); Red Cell Distribution Width 21.7 % (12-17); White Blood Count 9.6 10^3/uL (3.6-10.2)
[2023-06-07 06:30] LABS: Calcium 9.2 mg/dL (8.6-10.3); Creatinine, Serum 1.16 mg/dL (0.67-1.17); Magnesium 2.2 mg/dL (1.9-2.7); Potassium 4.1 mmol/L (3.5-5.0); eGFR CKD-EPI 61.7 (>60)
[2023-06-07] MEDS: Senna TAB 8.6 mg TAB PO PRN (08:05)
[2023-06-07] MEDS: Cholecalciferol (VIT D3) 400 units TAB PO SCH (08:05)
[2023-06-07] MEDS: Polyethylene Glycol 3350 17 GM PACKET PO PRN (08:07)
[2023-06-07] MEDS: CMCS: Alfuzosin ER 10 mg TAB.ER (NF) 10 MG TAB.ER PO SCH (08:08)
[2023-06-07] MEDS: Digoxin IV 0.5 MG/2 ML AMP (0.25 MG/ML) IV SLOW PU SCH ×2 (13:20→17:22)
[2023-06-08 07:25] LABS: Calcium 9.3 mg/dL (8.6-10.3); Creatinine, Serum 1.23 mg/dL (0.67-1.17); Potassium 4.6 mmol/L (3.5-5.0); eGFR CKD-EPI 57.5 (>60)
[2023-06-08] MEDS: Lidocaine PATCH 5% PATCH TRANSDERM SCH (10:58)
[2023-06-08] MEDS: Polyethylene Glycol 3350 17 GM PACKET PO PRN (11:01)
[2023-06-08] MEDS: Cholecalciferol (VIT D3) 400 units TAB PO SCH (11:04)
[2023-06-08] MEDS: Digoxin IV 0.5 MG/2 ML AMP (0.25 MG/ML) IV SLOW PU SCH (11:05)
[2023-06-08] MEDS: CMCS: Alfuzosin ER 10 mg TAB.ER (NF) 10 MG TAB.ER PO SCH (11:06)
[2023-06-08 14:05] LABS: PCO2 Arterial 32 mmHg (35-45); PO2 Arterial 105 mmHg (80-100)
[2023-06-08 16:50] LABS: Urine Appearance Clear; Urine Bilirubin Negative (Negative); Urine Blood 2+ (Negative); Urine Color Yellow; Urine Glucose 3+(>=500 mg/dL) (Negative); Urine Ketones Negative (Negative); Urine Nitrite Negative (Negative); Urine Protein Negative (Negative); Urine Specific Gravity 1.016 (1.002-1.030); Urine Urobilinogen Negative (Negative)
[2023-06-08 17:01] LABS: Urine Bacteria Absent (Absent); Urine Red Blood Cell 2+(6-10/hpf) (Absent); Urine Squamous Epithelial Cell Present (Absent); Urine White Blood Cell 1+(6-10/hpf) (Absent)
[2023-06-08] MEDS ORDERED: Bumetanide IV 0.25 MG/ML 4 ml VIAL (1 mg) IV SLOW PU ONE (17:55)
[2023-06-08] MEDS ORDERED: HYDROmorphone 0.5 MG/0.5 ML SYRINGE IV SLOW PU PRN (18:22)
[2023-06-08] MEDS: Ondansetron 4 mg VIAL 2 MG/ML 2 ml VIAL IV PRN (18:51)
[2023-06-09] MEDS: Ondansetron 4 mg VIAL 2 MG/ML 2 ml VIAL IV PRN ×2 (00:35→05:27)
[2023-06-09 06:26] LABS: ABS Basophils 0.1 10^3/uL (0.0-0.1); ABS Monocytes 0.7 10^3/uL (0.0-1.1); ABS Neutrophils 11.2 10^3/uL (1.5-7.6); ABS Nucleated RBC 0.01 10^3/ul; Hematocrit 41.2 % (38-53); Hemoglobin 13.5 g/dL (13.2-16.3); Lymphocyte % 7.7 %; Mean Corpuscular Hemoglobin 31.7 pg (27-33); Mean Corpuscular Hgb Conc 32.7 g/dL (31-36); Mean Platelet Volume 9.8 fL (7.5-11.2); Nucleated Red Blood Cells % 0.1 /100 WBC (0.0-0.4); Platelet Count 158 10^3/uL (150-450); Red Blood Count 4.25 10^6/uL (4.06-5.63); Red Cell Distribution Width 21.7 % (12-17); White Blood Count 12.9 10^3/uL (3.6-10.2)
[2023-06-09 06:36] LABS: Albumin 3.6 g/dL (3.2-5.2); Albumin/Globulin Ratio 1.2 (1-3); Calcium 9.3 mg/dL (8.6-10.3); Creatinine, Serum 1.21 mg/dL (0.67-1.17); Globulin 3.1 g/dL (2-4); Potassium 4.1 mmol/L (3.5-5.0); Total Bilirubin 0.9 mg/dL (0.2-1.0); Total Protein 6.7 g/dL (6.4-8.9); eGFR CKD-EPI 58.7 (>60)
[2023-06-09] MEDS ORDERED: Albumin Human 25% 25 GM/100 ML BTL IV ONE (10:59)
[2023-06-09 11:04] LABS: Body Fluid Source Peritonial Fluid
[2023-06-09 11:05] LABS: Body Fluid Appearance Cloudy; Body Fluid Color Yellow
[2023-06-09 11:19] LABS: Body Fluid WBC 1778 /mcL
[2023-06-09] MEDS: Cholecalciferol (VIT D3) 400 units TAB PO SCH (11:24)
[2023-06-09] MEDS: Digoxin IV 0.5 MG/2 ML AMP (0.25 MG/ML) IV SLOW PU SCH (12:55)
[2023-06-09] MEDS: Lidocaine PATCH 5% PATCH TRANSDERM SCH (12:55)
[2023-06-09 13:07] LABS: Ferritin 262.6 ng/mL (24-336)
[2023-06-09 13:15] LABS: Hepatitis B Surface Antigen Nonreactive (Nonreactive)
[2023-06-09 13:20] LABS: Hepatitis A Ab IgM Negative (Negative)
[2023-06-09 13:21] LABS: Hepatitis B Core IgM Nonreactive (Nonreactive)
[2023-06-09 13:33] LABS: Hepatitis C Antibody Negative (Negative)
[2023-06-09 14:17] LABS: HIV 4th Generation Nonreactive (Nonreactive)
[2023-06-09 14:21] LABS: HDL Cholesterol 30.5 mg/dL
[2023-06-09 16:12] LABS: Body Fluid Mono 14 %; Body Fluid Other Cells 6; Body Fluid Total Cells Counted 200
[2023-06-09] MEDS ORDERED: Famotidine IV 10 MG/ML 2 ml VIAL (20 mg) IV SLOW PU ONE (18:30)
[2023-06-10 07:41] LABS: ABS Basophils 0.1 10^3/uL (0.0-0.1); ABS Eosinophils 0.1 10^3/uL (0.0-0.5); ABS Lymphocytes 0.8 10^3/uL (1.0-4.8); ABS Monocytes 0.9 10^3/uL (0.0-1.1); ABS Neutrophils 11.4 10^3/uL (1.5-7.6); ABS Nucleated RBC 0.03 10^3/ul; Eosinophil % 0.6 %; Hematocrit 40.6 % (38-53); Hemoglobin 13.2 g/dL (13.2-16.3); Lymphocyte % 5.9 %; Mean Corpuscular Hemoglobin 31.8 pg (27-33); Mean Corpuscular Hgb Conc 32.6 g/dL (31-36); Mean Corpuscular Volume 97.6 fL (80-97); Nucleated Red Blood Cells % 0.2 /100 WBC (0.0-0.4); Red Blood Count 4.16 10^6/uL (4.06-5.63); Red Cell Distribution Width 22.2 % (12-17); White Blood Count 13.3 10^3/uL (3.6-10.2)
[2023-06-10 07:48] LABS: Albumin 3.5 g/dL (3.2-5.2); Albumin/Globulin Ratio 1.3 (1-3); Calcium 9.3 mg/dL (8.6-10.3); Creatinine, Serum 1.19 mg/dL (0.67-1.17); Globulin 2.8 g/dL (2-4); Potassium 4.2 mmol/L (3.5-5.0); Total Bilirubin 0.9 mg/dL (0.2-1.0); Total Protein 6.3 g/dL (6.4-8.9); eGFR CKD-EPI 59.9 (>60)
[2023-06-10 07:59] LABS: Mean Platelet Volume 10.1 fL (7.5-11.2); Platelet Count 145 10^3/uL (150-450)
[2023-06-10] MEDS: cefTRIAXone 2 gm/50 mL D5W 2 GM/50 ML BAG IV SCH (09:17)
[2023-06-10] MEDS: Cholecalciferol (VIT D3) 400 units TAB PO SCH (09:21)
[2023-06-10] MEDS: Digoxin IV 0.5 MG/2 ML AMP (0.25 MG/ML) IV SLOW PU SCH (09:23)
[2023-06-10] MEDS: Lidocaine PATCH 5% PATCH TRANSDERM SCH (09:28)
[2023-06-10] MEDS ORDERED: Magnesium Sulfate IV 1GM/100ML 1 GM/100 ML BAG IV ONE (11:01)
[2023-06-10] MEDS ORDERED: Al Hydrox/Mg Hydrox/Simet LIQ 30 ML UDC PO ONE ×2 (11:02→11:59)
[2023-06-10] MEDS: metroNIDAZOLE IV 500 MG/100ML 500 MG/100 ML BAG IVPB SCH ×2 (13:15→20:01)
[2023-06-11] MEDS: metroNIDAZOLE IV 500 MG/100ML 500 MG/100 ML BAG IVPB SCH ×3 (02:48→19:58)
[2023-06-11] MEDS: Ondansetron 4 mg VIAL 2 MG/ML 2 ml VIAL IV PRN (06:44)
[2023-06-11 06:50] LABS: Hematocrit 43.4 % (38-53); Hemoglobin 14.2 g/dL (13.2-16.3); Mean Corpuscular Hemoglobin 31.9 pg (27-33); Mean Corpuscular Hgb Conc 32.9 g/dL (31-36); Red Blood Count 4.47 10^6/uL (4.06-5.63); Red Cell Distribution Width 22.2 % (12-17); White Blood Count 13.8 10^3/uL (3.6-10.2)
[2023-06-11 07:07] LABS: Albumin 3.5 g/dL (3.2-5.2); Albumin/Globulin Ratio 1.1 (1-3); Calcium 9.2 mg/dL (8.6-10.3); Creatinine, Serum 1.17 mg/dL (0.67-1.17); Globulin 3.1 g/dL (2-4); Magnesium 2.1 mg/dL (1.9-2.7); Potassium 3.9 mmol/L (3.5-5.0); Total Bilirubin 0.8 mg/dL (0.2-1.0); Total Protein 6.6 g/dL (6.4-8.9); eGFR CKD-EPI 61.1 (>60)
[2023-06-11 07:35] LABS: ABS Basophils 0.1 10^3/uL (0.0-0.1); ABS Eosinophils 0.1 10^3/uL (0.0-0.5); ABS Lymphocytes 0.9 10^3/uL (1.0-4.8); ABS Monocytes 0.8 10^3/uL (0.0-1.1); ABS Neutrophils 11.9 10^3/uL (1.5-7.6); ABS Nucleated RBC 0.01 10^3/ul; Eosinophil % 0.4 %; Lymphocyte % 6.6 %; Nucleated Red Blood Cells % 0.1 /100 WBC (0.0-0.4); Platelet Count 138 10^3/uL (150-450)
[2023-06-11] MEDS: cefTRIAXone 2 gm/50 mL D5W 2 GM/50 ML BAG IV SCH (07:36)
[2023-06-11] MEDS: Digoxin IV 0.5 MG/2 ML AMP (0.25 MG/ML) IV SLOW PU SCH (07:51)
[2023-06-11] MEDS ORDERED: Bumetanide IV 0.25 MG/ML 4 ml VIAL (1 mg) IV SLOW PU ONE (07:51)
[2023-06-11] MEDS: Cholecalciferol (VIT D3) 400 units TAB PO SCH (07:56)
[2023-06-11] MEDS: Lidocaine PATCH 5% PATCH TRANSDERM SCH (07:57)
[2023-06-11 11:25] LABS: Glucose, BF 186 mg/dL
[2023-06-11 11:29] LABS: Fluid Type, Protein, Total PERITONEAL; Total Protein, BF 4.1 g/dL
[2023-06-11 12:18] LABS: Albumin, BF 2.7 g/dL; Fluid Type, Albumin PERITONEAL
[2023-06-11 13:23] LABS: Lactate Dehydrogenase, BF 151 U/L
[2023-06-11 21:36] LABS: Mitochondria M2 Antibody 0.1 U
[2023-06-12] MEDS: Albuterol HFA INHALER 8 gm MDI INH PRN (01:36)
[2023-06-12 02:25] LABS: Hematocrit 40.4 % (38-53); Hemoglobin 13.7 g/dL (13.2-16.3); Mean Corpuscular Hemoglobin 32.3 pg (27-33); Mean Corpuscular Hgb Conc 33.9 g/dL (31-36); Red Blood Count 4.25 10^6/uL (4.06-5.63); Red Cell Distribution Width 21.5 % (12-17); White Blood Count 11.4 10^3/uL (3.6-10.2)
[2023-06-12] MEDS: Ondansetron 4 mg VIAL 2 MG/ML 2 ml VIAL IV PRN (02:26)
[2023-06-12 02:41] LABS: Calcium 8.9 mg/dL (8.6-10.3); Creatinine, Serum 1.36 mg/dL (0.67-1.17); Magnesium 2.1 mg/dL (1.9-2.7); Potassium 3.9 mmol/L (3.5-5.0)
[2023-06-12 02:45] LABS: ABS Lymphocytes 0.7 10^3/uL (1.0-4.8); ABS Monocytes 1.1 10^3/uL (0.0-1.1); ABS Neutrophils 9.5 10^3/uL (1.5-7.6); ABS Nucleated RBC 0.01 10^3/ul; Eosinophil % 0.4 %; Lymphocyte % 6.3 %; Mean Platelet Volume 9.5 fL (7.5-11.2); Nucleated Red Blood Cells % 0.1 /100 WBC (0.0-0.4); Platelet Count 120 10^3/uL (150-450)
[2023-06-12] MEDS: metroNIDAZOLE IV 500 MG/100ML 500 MG/100 ML BAG IVPB SCH ×3 (03:30→21:07)
[2023-06-12 03:42] LABS: Albumin 3.3 g/dL (3.2-5.2); Albumin/Globulin Ratio 1.1 (1-3); Calcium 8.9 mg/dL (8.6-10.3); Creatinine, Serum 1.37 mg/dL (0.67-1.17); Globulin 2.9 g/dL (2-4); Magnesium 2.1 mg/dL (1.9-2.7); Total Bilirubin 0.6 mg/dL (0.2-1.0); Total Protein 6.2 g/dL (6.4-8.9); eGFR CKD-EPI 50.6 (>60)
[2023-06-12] MEDS: cefTRIAXone 2 gm/50 mL D5W 2 GM/50 ML BAG IV SCH (09:25)
[2023-06-12] MEDS: Cholecalciferol (VIT D3) 400 units TAB PO SCH (09:39)
[2023-06-12] MEDS: Lidocaine PATCH 5% PATCH TRANSDERM SCH (09:42)
[2023-06-12] MEDS: cefTRIAXone 1 gm/50 mL D5W 1 GM/50 ML BAG IV SCH (11:36)
[2023-06-12 12:27] LABS: C-ANCA Negative (Negative); P-ANCA Negative (Negative)
[2023-06-13] MEDS: metroNIDAZOLE IV 500 MG/100ML 500 MG/100 ML BAG IVPB SCH ×2 (03:05→12:02)
[2023-06-13 06:32] LABS: ABS Basophils 0.1 10^3/uL (0.0-0.1); ABS Eosinophils 0.1 10^3/uL (0.0-0.5); ABS Monocytes 0.8 10^3/uL (0.0-1.1); ABS Neutrophils 10.9 10^3/uL (1.5-7.6); ABS Nucleated RBC 0.02 10^3/ul; Eosinophil % 0.5 %; Hemoglobin 13.6 g/dL (13.2-16.3); Lymphocyte % 7.5 %; Mean Corpuscular Hemoglobin 31.7 pg (27-33); Mean Corpuscular Hgb Conc 33.2 g/dL (31-36); Mean Corpuscular Volume 95.5 fL (80-97); Nucleated Red Blood Cells % 0.1 /100 WBC (0.0-0.4); Red Blood Count 4.29 10^6/uL (4.06-5.63); Red Cell Distribution Width 22.2 % (12-17); White Blood Count 12.8 10^3/uL (3.6-10.2)
[2023-06-13 06:43] LABS: INR 1.65 (0.88-1.18)
[2023-06-13 06:47] LABS: Albumin 3.3 g/dL (3.2-5.2); Albumin/Globulin Ratio 1.1 (1-3); Creatinine, Serum 1.5 mg/dL (0.67-1.17); Globulin 2.9 g/dL (2-4); Magnesium 2.3 mg/dL (1.9-2.7); Potassium 3.8 mmol/L (3.5-5.0); Total Bilirubin 0.6 mg/dL (0.2-1.0); Total Protein 6.2 g/dL (6.4-8.9); eGFR CKD-EPI 45.3 (>60)
[2023-06-13 07:01] LABS: Mean Platelet Volume 9.8 fL (7.5-11.2); Platelet Count 132 10^3/uL (150-450)
[2023-06-13] MEDS: cefTRIAXone 1 gm/50 mL D5W 1 GM/50 ML BAG IV SCH (08:08)
[2023-06-13] MEDS: Lidocaine PATCH 5% PATCH TRANSDERM SCH (08:13)
[2023-06-13] MEDS: Aspirin EC 81 mg TAB.EC (enteric coated) PO SCH (08:14)
[2023-06-13] MEDS: Cholecalciferol (VIT D3) 400 units TAB PO SCH (08:14)
[2023-06-13] MEDS ORDERED: NS 0.9% 250 ml 250 ML IV ONE (11:26)
[2023-06-13 16:30] LABS: Creatinine, Serum 1.4 mg/dL (0.67-1.17); Potassium 3.9 mmol/L (3.5-5.0); eGFR CKD-EPI 49.3 (>60)
[2023-06-13 16:48] LABS: Digoxin 1.3 ng/ml (0.8-2.0)
[2023-06-13] MEDS ORDERED: Cefepime 1 GM in Dextrose 1 GM/50 ML BAG IV SCH (19:30)
[2023-06-13] MEDS: Azithromycin 500 mg/250 ml NS 500 MG/250 ML BAG IVPB SCH (22:00)
[2023-06-14 06:26] LABS: Hematocrit 41.8 % (38-53); Mean Corpuscular Hemoglobin 31.8 pg (27-33); Mean Corpuscular Hgb Conc 33.5 g/dL (31-36); Mean Corpuscular Volume 94.7 fL (80-97); Mean Platelet Volume 10.1 fL (7.5-11.2); Platelet Count 135 10^3/uL (150-450); Red Blood Count 4.41 10^6/uL (4.06-5.63); Red Cell Distribution Width 21.8 % (12-17); White Blood Count 12.5 10^3/uL (3.6-10.2)
[2023-06-14 06:28] LABS: Calcium 9.2 mg/dL (8.6-10.3); Creatinine, Serum 1.32 mg/dL (0.67-1.17); eGFR CKD-EPI 52.9 (>60)
[2023-06-14] MEDS: Aspirin EC 81 mg TAB.EC (enteric coated) PO SCH (08:23)
[2023-06-14] MEDS: Cholecalciferol (VIT D3) 400 units TAB PO SCH (08:23)
[2023-06-14] MEDS: Lidocaine PATCH 5% PATCH TRANSDERM SCH (08:24)
[2023-06-14] MEDS: Cefepime 1 GM in Dextrose 1 GM/50 ML BAG IV SCH ×2 (08:31→21:43)
[2023-06-14] MEDS ORDERED: Dextrose 50% Syringe 50 ml 25 GM/50 ML SYRINGE IV PUSH PRN (11:34)
[2023-06-14] MEDS: Azithromycin 500 mg/250 ml NS 500 MG/250 ML BAG IVPB SCH (20:15)
[2023-06-15 07:04] LABS: ABS Basophils 0.1 10^3/uL (0.0-0.1); ABS Eosinophils 0.3 10^3/uL (0.0-0.5); ABS Lymphocytes 0.7 10^3/uL (1.0-4.8); ABS Monocytes 0.9 10^3/uL (0.0-1.1); ABS Neutrophils 7.9 10^3/uL (1.5-7.6); ABS Nucleated RBC 0.01 10^3/ul; Eosinophil % 2.8 %; Hematocrit 42.4 % (38-53); Hemoglobin 14.1 g/dL (13.2-16.3); Lymphocyte % 7.1 %; Mean Corpuscular Hemoglobin 32.4 pg (27-33); Mean Corpuscular Hgb Conc 33.3 g/dL (31-36); Mean Corpuscular Volume 97.1 fL (80-97); Mean Platelet Volume 9.9 fL (7.5-11.2); Nucleated Red Blood Cells % 0.1 /100 WBC (0.0-0.4); Platelet Count 143 10^3/uL (150-450); Red Blood Count 4.37 10^6/uL (4.06-5.63); Red Cell Distribution Width 22.3 % (12-17); White Blood Count 9.8 10^3/uL (3.6-10.2)
[2023-06-15 07:07] LABS: Albumin 3.3 g/dL (3.2-5.2); Albumin/Globulin Ratio 1.1 (1-3); Calcium 9.1 mg/dL (8.6-10.3); Creatinine, Serum 1.19 mg/dL (0.67-1.17); Magnesium 2.3 mg/dL (1.9-2.7); Potassium 4.1 mmol/L (3.5-5.0); Total Bilirubin 0.7 mg/dL (0.2-1.0); Total Protein 6.3 g/dL (6.4-8.9); eGFR CKD-EPI 59.9 (>60)
[2023-06-15] MEDS: Albuterol HFA INHALER 8 gm MDI INH PRN (07:54)
[2023-06-15] MEDS: Cefepime 1 GM in Dextrose 1 GM/50 ML BAG IV SCH ×2 (08:06→23:01)
[2023-06-15] MEDS: Cholecalciferol (VIT D3) 400 units TAB PO SCH (09:13)
[2023-06-15] MEDS: Aspirin EC 81 mg TAB.EC (enteric coated) PO SCH (09:13)
[2023-06-15] MEDS: Lidocaine PATCH 5% PATCH TRANSDERM SCH (09:19)
[2023-06-15] MEDS ORDERED: Al Hydrox/Mg Hydrox/Simet LIQ 30 ML UDC PO PRN (10:11)
[2023-06-15] MEDS ORDERED: Al Hydrox/Mg Hydrox/Simet LIQ 30 ML UDC PO ONE (10:12)
[2023-06-15] MEDS ORDERED: Bumetanide IV 0.25 MG/ML 4 ml VIAL (1 mg) IV SLOW PU SCH ×3 (11:48→21:00)
[2023-06-15 12:45] LABS: Calcium 9.2 mg/dL (8.6-10.3); Creatinine, Serum 1.17 mg/dL (0.67-1.17); Magnesium 2.2 mg/dL (1.9-2.7); Potassium 4.1 mmol/L (3.5-5.0); eGFR CKD-EPI 61.1 (>60)
[2023-06-15 20:50] LABS: Body Fluid Source Peritonial Fluid
[2023-06-15] MEDS: Azithromycin 500 mg/250 ml NS 500 MG/250 ML BAG IVPB SCH (20:50)
[2023-06-15 20:52] LABS: Body Fluid Appearance Cloudy; Body Fluid Color Yellow
[2023-06-15 21:17] LABS: Body Fluid WBC 1684 /mcL
[2023-06-15 21:26] LABS: TB1 Ag minus Nil Result 0.01 IU/mL; TB2 Ag minus Nil Result -0.02 IU/mL
[2023-06-15 21:34] LABS: QuantiferonTb Gold Plus Result Negative (Negative)
[2023-06-15 21:35] LABS: Body Fluid Mono 12 %; Body Fluid Other Cells 20; Body Fluid Total Cells Counted 200
[2023-06-16 06:53] LABS: Hematocrit 42.2 % (38-53); Mean Corpuscular Hgb Conc 33.2 g/dL (31-36); Mean Corpuscular Volume 96.4 fL (80-97); Red Blood Count 4.38 10^6/uL (4.06-5.63); Red Cell Distribution Width 21.6 % (12-17); White Blood Count 11.9 10^3/uL (3.6-10.2)
[2023-06-16 06:59] LABS: Albumin 3.2 g/dL (3.2-5.2); Albumin/Globulin Ratio 1.1 (1-3); Calcium 8.9 mg/dL (8.6-10.3); Creatinine, Serum 1.11 mg/dL (0.67-1.17); Globulin 2.9 g/dL (2-4); Magnesium 1.9 mg/dL (1.9-2.7); Total Bilirubin 0.7 mg/dL (0.2-1.0); Total Protein 6.1 g/dL (6.4-8.9); eGFR CKD-EPI 65.1 (>60)
[2023-06-16] MEDS ORDERED: Magnesium Sulfate IV 1GM/100ML 1 GM/100 ML BAG IV ONE (07:42)
[2023-06-16] MEDS ORDERED: Bumetanide IV 0.25 MG/ML 4 ml VIAL (1 mg) IV SLOW PU SCH (08:00)
[2023-06-16] MEDS: Aspirin EC 81 mg TAB.EC (enteric coated) PO SCH (09:07)
[2023-06-16] MEDS: Cholecalciferol (VIT D3) 400 units TAB PO SCH (09:09)
[2023-06-16] MEDS: Lidocaine PATCH 5% PATCH TRANSDERM SCH (09:10)
[2023-06-16 09:29] LABS: ABS Basophils 0.1 10^3/uL (0.0-0.1); ABS Eosinophils 0.2 10^3/uL (0.0-0.5); ABS Lymphocytes 0.7 10^3/uL (1.0-4.8); ABS Monocytes 1.1 10^3/uL (0.0-1.1); ABS Neutrophils 9.8 10^3/uL (1.5-7.6); ABS Nucleated RBC 0.01 10^3/ul; Eosinophil % 1.6 %; Lymphocyte % 5.9 %; Mean Platelet Volume 9.5 fL (7.5-11.2); Nucleated Red Blood Cells % 0.1 /100 WBC (0.0-0.4); Platelet Count 143 10^3/uL (150-450)
[2023-06-16] MEDS: Cefepime 1 GM in Dextrose 1 GM/50 ML BAG IV SCH ×2 (10:14→21:37)
[2023-06-16] MEDS: Bumetanide IV 0.25 MG/ML 4 ml VIAL (1 mg) IV SLOW PU SCH (13:04)
[2023-06-16 13:55] LABS: Uric Acid 8.9 mg/dL (4.4-7.6)
[2023-06-16] MEDS: Azithromycin 500 mg/250 ml NS 500 MG/250 ML BAG IVPB SCH (20:31)
[2023-06-17] MEDS: Bumetanide IV 0.25 MG/ML 4 ml VIAL (1 mg) IV SLOW PU SCH ×2 (05:52→13:47)
[2023-06-17 06:23] LABS: Hematocrit 41.5 % (38-53); Hemoglobin 13.8 g/dL (13.2-16.3); Mean Corpuscular Hemoglobin 31.9 pg (27-33); Mean Corpuscular Hgb Conc 33.2 g/dL (31-36); Red Blood Count 4.32 10^6/uL (4.06-5.63); Red Cell Distribution Width 22.1 % (12-17); White Blood Count 11.6 10^3/uL (3.6-10.2)
[2023-06-17 06:31] LABS: Albumin 3.1 g/dL (3.2-5.2); Albumin/Globulin Ratio 1.1 (1-3); Calcium 8.9 mg/dL (8.6-10.3); Creatinine, Serum 1.12 mg/dL (0.67-1.17); Globulin 2.9 g/dL (2-4); Potassium 4.1 mmol/L (3.5-5.0); Total Bilirubin 0.8 mg/dL (0.2-1.0); eGFR CKD-EPI 64.4 (>60)
[2023-06-17 06:50] LABS: ABS Basophils 0.1 10^3/uL (0.0-0.1); ABS Eosinophils 0.1 10^3/uL (0.0-0.5); ABS Lymphocytes 0.8 10^3/uL (1.0-4.8); ABS Monocytes 1.4 10^3/uL (0.0-1.1); ABS Neutrophils 9.2 10^3/uL (1.5-7.6); ABS Nucleated RBC 0.01 10^3/ul; Eosinophil % 1.3 %; Lymphocyte % 6.6 %; Nucleated Red Blood Cells % 0.1 /100 WBC (0.0-0.4); Platelet Count Platelets clumped. 10^3/uL (150-450)
[2023-06-17] MEDS: Cefepime 1 GM in Dextrose 1 GM/50 ML BAG IV SCH (08:11)
[2023-06-17] MEDS: Cholecalciferol (VIT D3) 400 units TAB PO SCH (08:12)
[2023-06-17] MEDS: Lidocaine PATCH 5% PATCH TRANSDERM SCH (08:13)
[2023-06-17 11:17] LABS: Osmolality Serum 289 mOsm/kg (275-295)
[2023-06-17] MEDS: Insulin GLARGINE 100 un/ml 10 ml VIAL SUBCUT SCH (12:13)
[2023-06-17 15:29] LABS: Fluid Type, Protein, Total PERITONEAL; Glucose, BF 198 mg/dL; Total Protein, BF 3.9 g/dL
[2023-06-17 15:31] LABS: Albumin, BF 2.3 g/dL; Fluid Type, Albumin PERITONEAL
[2023-06-17 15:58] LABS: Lactate Dehydrogenase, BF 172 U/L
[2023-06-17 19:25] LABS: Urine Osmo 396 mOsm/kg (150-1150)
[2023-06-17] MEDS: Azithromycin 500 mg/250 ml NS 500 MG/250 ML BAG IVPB SCH (19:41)
[2023-06-18] MEDS: Bumetanide IV 0.25 MG/ML 4 ml VIAL (1 mg) IV SLOW PU SCH (05:37)
[2023-06-18 06:11] LABS: Hematocrit 42.4 % (38-53); Mean Corpuscular Hemoglobin 31.7 pg (27-33); Mean Corpuscular Volume 96.1 fL (80-97); Red Blood Count 4.41 10^6/uL (4.06-5.63); Red Cell Distribution Width 21.4 % (12-17); White Blood Count 14.2 10^3/uL (3.6-10.2)
[2023-06-18 06:36] LABS: Albumin/Globulin Ratio 1.1 (1-3); Calcium 8.8 mg/dL (8.6-10.3); Creatinine, Serum 1.11 mg/dL (0.67-1.17); Globulin 2.8 g/dL (2-4); Magnesium 1.8 mg/dL (1.9-2.7); Potassium 3.5 mmol/L (3.5-5.0); Total Bilirubin 0.8 mg/dL (0.2-1.0); Total Protein 5.8 g/dL (6.4-8.9); eGFR CKD-EPI 65.1 (>60)
[2023-06-18] MEDS ORDERED: Magnesium Sulfate 2 gm BAG 2 GM/50 ML BAG IVPB ONE (08:00)
[2023-06-18] MEDS: Cholecalciferol (VIT D3) 400 units TAB PO SCH (08:19)
[2023-06-18] MEDS: Insulin GLARGINE 100 un/ml 10 ml VIAL SUBCUT SCH (08:21)
[2023-06-18] MEDS: Lidocaine PATCH 5% PATCH TRANSDERM SCH (08:21)
[2023-06-18 08:42] LABS: Platelet Morphology Large
[2023-06-18 08:43] LABS: Anisocytosis 2+
[2023-06-18 08:44] LABS: ABS Basophils 0.1 10^3/uL (0.0-0.1); ABS Eosinophils 0.2 10^3/uL (0.0-0.5); ABS Lymphocytes 0.9 10^3/uL (1.0-4.8); ABS Monocytes 1.2 10^3/uL (0.0-1.1); ABS Neutrophils 11.8 10^3/uL (1.5-7.6); ABS Nucleated RBC 0.02 10^3/ul; Eosinophil % 1.4 %; Lymphocyte % 6.5 %; Mean Platelet Volume 9.5 fL (7.5-11.2); Nucleated Red Blood Cells % 0.1 /100 WBC (0.0-0.4); Platelet Count 160 10^3/uL (150-450); Tear Drop Cells 1+
[2023-06-18 11:46] LABS: Hematocrit 42.4 % (38-53); Hemoglobin 13.9 g/dL (13.2-16.3); Mean Corpuscular Hemoglobin 31.6 pg (27-33); Mean Corpuscular Hgb Conc 32.7 g/dL (31-36); Mean Corpuscular Volume 96.4 fL (80-97); Red Blood Count 4.39 10^6/uL (4.06-5.63); Red Cell Distribution Width 21.8 % (12-17)
[2023-06-18] MEDS: Albuterol HFA INHALER 8 gm MDI INH PRN ×2 (12:19→14:15)
[2023-06-18 13:04] LABS: Mean Platelet Volume 9.4 fL (7.5-11.2); Platelet Count 173 10^3/uL (150-450); White Blood Count 15.8 10^3/uL (3.6-10.2)
[2023-06-18] MEDS ORDERED: Vancomycin per Pharmacy 1 EA NOTE FOLLOW UP PRN (13:58)
[2023-06-18] MEDS ORDERED: Vancomycin 1,000 MG in NS 0.9% 250 ml 250 ML IVPB SCH (14:00)
[2023-06-18] MEDS ORDERED: Cefepime 2 GM in Dextrose 2 GM/50 ML BAG IV SCH (14:00)
[2023-06-18] MEDS ORDERED: Vancomycin 1,750 MG in NS 0.9% 500 ml BAG 500 ML IVPB ONE (14:01)
[2023-06-18] MEDS: Cefepime 2 GM in Dextrose 2 GM/50 ML BAG IV SCH (14:18)
[2023-06-18] MEDS ORDERED: Doxepin 3 mg TAB (NF) PO SCH ×2 (21:00)
[2023-06-19] MEDS: Cefepime 2 GM in Dextrose 2 GM/50 ML BAG IV SCH (03:22)
[2023-06-19 06:21] LABS: Hematocrit 40.3 % (38-53); Hemoglobin 13.6 g/dL (13.2-16.3); Mean Corpuscular Hemoglobin 31.6 pg (27-33); Mean Corpuscular Hgb Conc 33.8 g/dL (31-36); Mean Corpuscular Volume 93.6 fL (80-97); Red Cell Distribution Width 21.6 % (12-17); White Blood Count 16.3 10^3/uL (3.6-10.2)
[2023-06-19 06:30] LABS: Creatinine, Serum 1.15 mg/dL (0.67-1.17); Potassium 3.6 mmol/L (3.5-5.0)
[2023-06-19 06:31] LABS: Albumin/Globulin Ratio 1.2 (1-3); Calcium 8.7 mg/dL (8.6-10.3); Globulin 2.6 g/dL (2-4); Magnesium 2.2 mg/dL (1.9-2.7); Total Bilirubin 0.9 mg/dL (0.2-1.0); Total Protein 5.6 g/dL (6.4-8.9); eGFR CKD-EPI 62.4 (>60)
[2023-06-19 06:55] LABS: Mean Platelet Volume 9.5 fL (7.5-11.2); Platelet Count 166 10^3/uL (150-450)
[2023-06-19 06:56] LABS: ABS Basophils 0.2 10^3/uL (0.0-0.1); ABS Eosinophils 0.1 10^3/uL (0.0-0.5); ABS Lymphocytes 0.9 10^3/uL (1.0-4.8); ABS Monocytes 1.4 10^3/uL (0.0-1.1); ABS Neutrophils 13.7 10^3/uL (1.5-7.6); ABS Nucleated RBC 0.01 10^3/ul; Eosinophil % 0.6 %; Lymphocyte % 5.7 %
[2023-06-19] MEDS: Albuterol HFA INHALER 8 gm MDI INH PRN (07:48)
[2023-06-19] MEDS: Insulin GLARGINE 100 un/ml 10 ml VIAL SUBCUT SCH (07:57)
[2023-06-19] MEDS: Cholecalciferol (VIT D3) 400 units TAB PO SCH (07:58)
[2023-06-19] MEDS: Lidocaine PATCH 5% PATCH TRANSDERM SCH (07:58)
[2023-06-19 13:20] VITALS: BP 114/64
[2023-06-19] MEDS ORDERED: Vancomycin 1,750 MG in NS 0.9% 500 ml BAG 500 ML IVPB SCH (14:00)
[2023-06-21] MEDS ORDERED: Vancomycin Trough Check NOTE FOLLOW UP ONE (13:30)
== END 2023-06-19 14:45 | disposition home or self-care (01) | DRG 291 ==
LOC: EDHOLD 08:40 → ED 08:40 → SUATTDRO 13:23 → MEDTELE 17:05 → SUATTDRO 06-08 14:02
PROVIDERS: ADMIT Hospitalist; ATTEND Internal Medicine

== ENCOUNTER 2023-06-26 17:39 | Inpatient (IN) ==
[2023-06-26 21:10] LABS: Albumin/Globulin Ratio 1.1 (1-3); Calcium 8.8 mg/dL (8.6-10.3); Creatinine, Serum 1.29 mg/dL (0.67-1.17); Globulin 2.7 g/dL (2-4); Hematocrit 39.7 % (38-53); Hemoglobin 12.9 g/dL (13.2-16.3); Magnesium 2.2 mg/dL (1.9-2.7); Mean Corpuscular Hgb Conc 32.5 g/dL (31-36); Mean Corpuscular Volume 95.5 fL (80-97); Potassium 3.9 mmol/L (3.5-5.0); Red Blood Count 4.16 10^6/uL (4.06-5.63); Total Protein 5.7 g/dL (6.4-8.9); White Blood Count 16.1 10^3/uL (3.6-10.2); eGFR CKD-EPI 54.3 (>60)
[2023-06-26 21:15] LABS: Digoxin 2.2 ng/ml (0.8-2.0)
[2023-06-26 21:27] LABS: ABS Basophils 0.1 10^3/uL (0.0-0.1); ABS Lymphocytes 0.7 10^3/uL (1.0-4.8); ABS Neutrophils 14.3 10^3/uL (1.5-7.6); ABS Nucleated RBC 0.03 10^3/ul; Eosinophil % 0.1 %; Lymphocyte % 4.6 %; Mean Platelet Volume 10.1 fL (7.5-11.2); Nucleated Red Blood Cells % 0.2 /100 WBC (0.0-0.4); Platelet Count 107 10^3/uL (150-450); Red Cell Distribution Width 21.4 % (12-17)
[2023-06-26] MEDS ORDERED: Iodixanol (CONTRAST) 320 MG/ML 100 ML SDV IV ONE (21:41)
[2023-06-26 22:48] LABS: High Sensitivity Troponin 1 Hr 46 pg/mL (<20)
[2023-06-27 06:14] LABS: Urine Appearance Cloudy; Urine Bilirubin Negative (Negative); Urine Blood 1+ (Negative); Urine Color Yellow; Urine Glucose 2+(150 mg/dL) (Negative); Urine Ketones Negative (Negative); Urine Nitrite Negative (Negative); Urine Protein Negative (Negative); Urine Specific Gravity 1.017 (1.002-1.030); Urine Urobilinogen Negative (Negative)
[2023-06-27 06:15] LABS: Urine Bacteria Absent (Absent); Urine Red Blood Cell Trace(0-2/hpf) (Absent); Urine Squamous Epithelial Cell Present (Absent); Urine White Blood Cell 1+(6-10/hpf) (Absent)
[2023-06-27] MEDS ORDERED: cefTRIAXone 1 gm/50 mL D5W 1 GM/50 ML BAG IV ONE (10:29)
[2023-06-27] MEDS ORDERED: NS 0.9% 500 ml BAG 500 ML IV ONE (10:29)
[2023-06-27] MEDS ORDERED: Albuterol HFA INHALER 8 gm MDI INH PRN (12:02)
[2023-06-27] MEDS ORDERED: Dextrose 50% Syringe 50 ml 25 GM/50 ML SYRINGE IV PUSH PRN (12:15)
[2023-06-27 13:04] LABS: Osmolality Serum 279 mOsm/kg (275-295)
[2023-06-28] MEDS ORDERED: Al Hydrox/Mg Hydrox/Simet LIQ 30 ML UDC PO ONE (01:02)
[2023-06-28 01:18] LABS: Hematocrit 38.9 % (38-53); Hemoglobin 12.9 g/dL (13.2-16.3); Mean Corpuscular Hemoglobin 31.6 pg (27-33); Mean Corpuscular Hgb Conc 33.2 g/dL (31-36); Mean Corpuscular Volume 95.3 fL (80-97); Red Blood Count 4.08 10^6/uL (4.06-5.63); Red Cell Distribution Width 21.2 % (12-17); White Blood Count 16.3 10^3/uL (3.6-10.2)
[2023-06-28 01:50] LABS: ABS Basophils 0.2 10^3/uL (0.0-0.1); ABS Lymphocytes 0.7 10^3/uL (1.0-4.8); ABS Monocytes 1.1 10^3/uL (0.0-1.1); ABS Neutrophils 14.4 10^3/uL (1.5-7.6); ABS Nucleated RBC 0.02 10^3/ul; Eosinophil % 0.3 %; Mean Platelet Volume 9.7 fL (7.5-11.2); Nucleated Red Blood Cells % 0.1 /100 WBC (0.0-0.4); Platelet Count 78 10^3/uL (150-450)
[2023-06-28 02:27] LABS: ABS Basophils 0.1 10^3/uL (0.0-0.1); ABS Lymphocytes 0.5 10^3/uL (1.0-4.8); ABS Monocytes 1.2 10^3/uL (0.0-1.1); ABS Neutrophils 15.1 10^3/uL (1.5-7.6); ABS Nucleated RBC 0.06 10^3/ul; Eosinophil % 0.2 %; Hematocrit 38.2 % (38-53); Hemoglobin 12.7 g/dL (13.2-16.3); Lymphocyte % 3.1 %; Mean Corpuscular Hemoglobin 31.7 pg (27-33); Mean Corpuscular Hgb Conc 33.3 g/dL (31-36); Mean Corpuscular Volume 95.2 fL (80-97); Mean Platelet Volume 10.4 fL (7.5-11.2); Nucleated Red Blood Cells % 0.4 /100 WBC (0.0-0.4); Platelet Count 80 10^3/uL (150-450); Red Blood Count 4.02 10^6/uL (4.06-5.63); Red Cell Distribution Width 20.9 % (12-17); White Blood Count 16.9 10^3/uL (3.6-10.2)
[2023-06-28 02:41] LABS: High Sensitivity Troponin 1 Hr 45 pg/mL (<20)
[2023-06-28 02:43] LABS: Albumin 2.9 g/dL (3.2-5.2); Albumin/Globulin Ratio 1.2 (1-3); Calcium 8.4 mg/dL (8.6-10.3); Creatinine, Serum 1.1 mg/dL (0.67-1.17); Globulin 2.5 g/dL (2-4); Magnesium 2.1 mg/dL (1.9-2.7); Total Bilirubin 0.8 mg/dL (0.2-1.0); Total Protein 5.4 g/dL (6.4-8.9); eGFR CKD-EPI 65.8 (>60)
[2023-06-28 03:39] LABS: Digoxin 1.7 ng/ml (0.8-2.0)
[2023-06-28 09:35] LABS: PSA Screen Ultra Sensitive 0.242 ng/mL (0-4.000)
[2023-06-28 09:47] LABS: Carcinoembryonic Antigen 1.5 ng/mL (0.1-5.0)
[2023-06-28] MEDS ORDERED: cefTRIAXone 1 gm/50 mL D5W 1 GM/50 ML BAG IV SCH (10:30)
[2023-06-28 13:00] LABS: INR 1.31 (0.88-1.18)
[2023-06-28] MEDS ORDERED: Enoxaparin 100 MG/ML SYR SUBCUT SCH (22:00)
[2023-06-29 06:25] LABS: Hematocrit 39.9 % (38-53); Hemoglobin 12.9 g/dL (13.2-16.3); Mean Corpuscular Hemoglobin 31.3 pg (27-33); Mean Corpuscular Hgb Conc 32.4 g/dL (31-36); Mean Corpuscular Volume 96.5 fL (80-97); Red Blood Count 4.14 10^6/uL (4.06-5.63); White Blood Count 16.8 10^3/uL (3.6-10.2)
[2023-06-29 06:43] LABS: ABS Basophils 0.2 10^3/uL (0.0-0.1); ABS Eosinophils 0.1 10^3/uL (0.0-0.5); ABS Lymphocytes 0.9 10^3/uL (1.0-4.8); ABS Monocytes 1.8 10^3/uL (0.0-1.1); ABS Neutrophils 13.9 10^3/uL (1.5-7.6); ABS Nucleated RBC 0.04 10^3/ul; Eosinophil % 0.6 %; Lymphocyte % 5.5 %; Mean Platelet Volume 10.9 fL (7.5-11.2); Nucleated Red Blood Cells % 0.2 /100 WBC (0.0-0.4); Platelet Count 61 10^3/uL (150-450)
[2023-06-29 06:44] LABS: Albumin/Globulin Ratio 1.2 (1-3); Calcium 8.6 mg/dL (8.6-10.3); Creatinine, Serum 1.06 mg/dL (0.67-1.17); Globulin 2.6 g/dL (2-4); Magnesium 2.3 mg/dL (1.9-2.7); Phosphorus 2.9 mg/dL (2.5-5.0); Potassium 4.1 mmol/L (3.5-5.0); Total Bilirubin 0.8 mg/dL (0.2-1.0); Total Protein 5.6 g/dL (6.4-8.9); eGFR CKD-EPI 68.8 (>60)
[2023-06-29] MEDS ORDERED: cefTRIAXone 2 GM ADDV.VIAL 2 GM in NS 0.9% 100 ml BAG 100 ML IV SCH (10:30)
[2023-06-29] MEDS ORDERED: cefTRIAXone 2 gm/50 mL D5W 2 GM/50 ML BAG IV SCH (10:30)
[2023-06-29 14:12] LABS: Body Fluid Color Yellow
[2023-06-29 14:13] LABS: Body Fluid Appearance Clear; Body Fluid Source Peritonial Fluid
[2023-06-29 14:22] LABS: Body Fluid WBC 914 /mcL
[2023-06-29 15:32] LABS: Body Fluid Mono 21 %; Body Fluid Total Cells Counted 200
[2023-06-29] MEDS: Enoxaparin 100 MG/ML SYR SUBCUT SCH (20:21)
[2023-06-30 06:10] LABS: Albumin 2.9 g/dL (3.2-5.2); Calcium 8.5 mg/dL (8.6-10.3); Creatinine, Serum 1.01 mg/dL (0.67-1.17); Globulin 2.9 g/dL (2-4); Magnesium 2.2 mg/dL (1.9-2.7); Phosphorus 3.1 mg/dL (2.5-5.0); Total Bilirubin 0.7 mg/dL (0.2-1.0); Total Protein 5.8 g/dL (6.4-8.9); eGFR CKD-EPI 72.9 (>60)
[2023-06-30 06:18] LABS: ABS Basophils 0.1 10^3/uL (0.0-0.1); ABS Eosinophils 0.2 10^3/uL (0.0-0.5); ABS Lymphocytes 0.9 10^3/uL (1.0-4.8); ABS Monocytes 1.6 10^3/uL (0.0-1.1); ABS Neutrophils 14.3 10^3/uL (1.5-7.6); ABS Nucleated RBC 0.02 10^3/ul; Eosinophil % 1.1 %; Hematocrit 39.5 % (38-53); Lymphocyte % 5.1 %; Mean Corpuscular Hemoglobin 31.5 pg (27-33); Mean Corpuscular Volume 95.5 fL (80-97); Nucleated Red Blood Cells % 0.1 /100 WBC (0.0-0.4); Platelet Count 46 10^3/uL (150-450); Red Blood Count 4.14 10^6/uL (4.06-5.63); Red Cell Distribution Width 21.3 % (12-17)
[2023-06-30] MEDS: Enoxaparin 100 MG/ML SYR SUBCUT SCH (10:46)
[2023-06-30 17:35] LABS: AFP Tumor Marker 2.3 ng/mL (<8.4)
[2023-06-30 18:09] LABS: Platelet Count 58 10^3/ul (150-450)
[2023-06-30 18:11] LABS: Activated Partial Thrombo Time 42.4 seconds (26.0-38.0); INR 1.14 (0.88-1.18)
[2023-06-30 18:27] LABS: Schistocytes ABSENT
[2023-07-01 06:10] LABS: Hematocrit 38.4 % (38-53); Hemoglobin 12.8 g/dL (13.2-16.3); Mean Corpuscular Hemoglobin 31.6 pg (27-33); Mean Corpuscular Hgb Conc 33.2 g/dL (31-36); Mean Corpuscular Volume 95.2 fL (80-97); Red Blood Count 4.04 10^6/uL (4.06-5.63); Red Cell Distribution Width 21.2 % (12-17)
[2023-07-01 06:24] LABS: Albumin 2.8 g/dL (3.2-5.2); Calcium 8.3 mg/dL (8.6-10.3); Creatinine, Serum 1.2 mg/dL (0.67-1.17); Globulin 2.8 g/dL (2-4); Magnesium 2.2 mg/dL (1.9-2.7); Phosphorus 3.4 mg/dL (2.5-5.0); Potassium 4.3 mmol/L (3.5-5.0); Total Bilirubin 0.6 mg/dL (0.2-1.0); Total Protein 5.6 g/dL (6.4-8.9); eGFR CKD-EPI 59.3 (>60)
[2023-07-01 08:32] LABS: ABS Basophils 0.2 10^3/uL (0.0-0.1); ABS Lymphocytes 0.9 10^3/uL (1.0-4.8); ABS Monocytes 1.3 10^3/uL (0.0-1.1); ABS Neutrophils 14.5 10^3/uL (1.5-7.6); ABS Nucleated RBC 0.02 10^3/ul; Eosinophil % 0.3 %; Lymphocyte % 5.5 %; Mean Platelet Volume 11.4 fL (7.5-11.2); Nucleated Red Blood Cells % 0.1 /100 WBC (0.0-0.4); Platelet Count 57 10^3/uL (150-450)
[2023-07-01 14:48] LABS: Lactate Dehydrogenase, BF 136 U/L
[2023-07-01 15:33] LABS: Fluid Type, Albumin PERITONEAL; Fluid Type, Protein, Total PERITONEAL; Glucose, BF 155 mg/dL; Total Protein, BF 3.2 g/dL
[2023-07-02 05:54] LABS: Hematocrit 39.9 % (38-53); Hemoglobin 13.1 g/dL (13.2-16.3); Mean Corpuscular Hemoglobin 31.6 pg (27-33); Mean Corpuscular Hgb Conc 32.9 g/dL (31-36); Mean Corpuscular Volume 96.2 fL (80-97); Red Blood Count 4.15 10^6/uL (4.06-5.63); Red Cell Distribution Width 21.5 % (12-17); White Blood Count 16.5 10^3/uL (3.6-10.2)
[2023-07-02 06:10] LABS: Calcium 8.3 mg/dL (8.6-10.3); Creatinine, Serum 1.13 mg/dL (0.67-1.17); Magnesium 2.2 mg/dL (1.9-2.7); Phosphorus 3.6 mg/dL (2.5-5.0); Potassium 4.6 mmol/L (3.5-5.0); eGFR CKD-EPI 63.7 (>60)
[2023-07-02 06:36] LABS: ABS Neutrophils 14.5 10^3/uL (1.5-7.6); ABS Nucleated RBC 0.08 10^3/ul; Eosinophil % 0.2 %; Lymphocyte % 5.9 %; Mean Platelet Volume 10.9 fL (7.5-11.2); Nucleated Red Blood Cells % 0.5 /100 WBC (0.0-0.4); Platelet Count 70 10^3/uL (150-450)
[2023-07-02 12:54] VITALS: BP 106/69
== END 2023-07-02 10:41 | disposition home or self-care (01) | DRG 843 ==
LOC: EDHOLD 17:39 → ED 17:39 → SUATTDRO 06-27 10:49 → MEDTELE 06-27 11:41
PROVIDERS: ADMIT Internal Medicine; ATTEND Internal Medicine